=== PATIENT | female | born 1950 | race Caucasian/White ===

== ENCOUNTER 2021-02-16 13:10 | Outpatient (REF) | payer MEDICARE, MEDICAID, OTHER, SELFPAY ==
--- NOTE | ~2021-02-16 | XR_ITS ---
EXAMINATION: BILATERAL KNEE X-RAY CLINICAL INFORMATION: Pain COMPARISON: Previous left knee x-ray August 2015 and right knee x-ray June 2012 TECHNIQUE: 4 views of each knee FINDINGS: Right: Bone alignment is normal. No fracture or dislocation is seen. There is a degenerative meniscal calcification. There is mild arthritis at the medial femoral tibial and patellofemoral joints with small osteophytes. There is no joint effusion. Left: Bone alignment is normal. No fracture or dislocation is seen. There is degenerative meniscal calcification. There is arthritis at the femoral tibial and patellofemoral joints with joint space narrowing and osteophyte formation. There is a small joint effusion. XR/XR knee RT 4V IMPRESSION: Bilateral arthritis, left greater than right.
--- NOTE | ~2021-02-16 | XR_ITS ---
EXAMINATION: BILATERAL KNEE X-RAY CLINICAL INFORMATION: Pain COMPARISON: Previous left knee x-ray August 2015 and right knee x-ray June 2012 TECHNIQUE: 4 views of each knee FINDINGS: Right: Bone alignment is normal. No fracture or dislocation is seen. There is a degenerative meniscal calcification. There is mild arthritis at the medial femoral tibial and patellofemoral joints with small osteophytes. There is no joint effusion. Left: Bone alignment is normal. No fracture or dislocation is seen. There is degenerative meniscal calcification. There is arthritis at the femoral tibial and patellofemoral joints with joint space narrowing and osteophyte formation. There is a small joint effusion. XR/XR knee LT 4V IMPRESSION: Bilateral arthritis, left greater than right.
== END 2021-02-16 13:11 | disposition home or self-care (01) ==
LOC: HO.XRAY 13:10
PROVIDERS: PCP Internal Medicine; Visit Provider Family Medicine
DX: M25.561 Pain in right knee (principal); M25.562 Pain in left knee
CPT/HCPCS: 73564

== ENCOUNTER 2021-02-27 08:00 | Outpatient (REF) | payer MEDICARE, MEDICAID, OTHER, SELFPAY ==
--- NOTE | ~2021-02-27 | XR_ITS ---
EXAMINATION: BILATERAL KNEE X-RAY CLINICAL INFORMATION: Pain COMPARISON: Previous exam 02/16/2021 TECHNIQUE: Standing AP, lateral and sunrise of the bilateral knees FINDINGS: Right: Bone alignment is normal. No fracture or dislocation is seen there is degenerative meniscal calcification. There is joint space narrowing medial femoral tibial joint. There are small osteophytes Image at the medial femoral tibial and patellofemoral joints. There is no joint effusion. Left: Bone alignment is normal. No fracture or dislocation is seen. There is degenerative meniscal calcification. There are degenerative changes at the medial and lateral femoral tibial and patellofemoral joints with joint space narrowing and osteophyte formation. There is a small joint effusion. XR/XR knee standing BI IMPRESSION: Bilateral arthritis, left greater than right.
--- NOTE | ~2021-02-27 | XR_ITS ---
EXAMINATION: BILATERAL KNEE X-RAY CLINICAL INFORMATION: Pain COMPARISON: Previous exam 02/16/2021 TECHNIQUE: Standing AP, lateral and sunrise of the bilateral knees FINDINGS: Right: Bone alignment is normal. No fracture or dislocation is seen there is degenerative meniscal calcification. There is joint space narrowing medial femoral tibial joint. There are small osteophytes Image at the medial femoral tibial and patellofemoral joints. There is no joint effusion. Left: Bone alignment is normal. No fracture or dislocation is seen. There is degenerative meniscal calcification. There are degenerative changes at the medial and lateral femoral tibial and patellofemoral joints with joint space narrowing and osteophyte formation. There is a small joint effusion. XR/XR knee RT 2V IMPRESSION: Bilateral arthritis, left greater than right.
--- NOTE | ~2021-02-27 | XR_ITS ---
EXAMINATION: BILATERAL KNEE X-RAY CLINICAL INFORMATION: Pain COMPARISON: Previous exam 02/16/2021 TECHNIQUE: Standing AP, lateral and sunrise of the bilateral knees FINDINGS: Right: Bone alignment is normal. No fracture or dislocation is seen there is degenerative meniscal calcification. There is joint space narrowing medial femoral tibial joint. There are small osteophytes Image at the medial femoral tibial and patellofemoral joints. There is no joint effusion. Left: Bone alignment is normal. No fracture or dislocation is seen. There is degenerative meniscal calcification. There are degenerative changes at the medial and lateral femoral tibial and patellofemoral joints with joint space narrowing and osteophyte formation. There is a small joint effusion. XR/XR knee LT 2V IMPRESSION: Bilateral arthritis, left greater than right.
== END 2021-02-27 08:01 | disposition home or self-care (01) ==
LOC: HO.HOSX 08:00
PROVIDERS: Visit Provider Physician Assistant
DX: M17.0 Bilateral primary osteoarthritis of knee (principal)
CPT/HCPCS: 73560; 73565; 99202

== ENCOUNTER 2021-05-06 13:23 | Outpatient (REF) | payer MEDICARE, OTHER, SELFPAY ==
--- NOTE | ~2021-05-06 | MM_ITS ---
EXAMINATION: MM SCREENING DIGITAL BREAST TOMOSYNTHESIS, BILATERAL CLINICAL INFORMATION: Screening. Asymptomatic. The lifetime risk of breast cancer based on the Tyrer-Cuzick Model is 7%. COMPARISON: Mammography: 04/28/2020, 05/02/2019, 04/25/2019, 01/06/2018 TECHNIQUE: Digital breast tomosynthesis is performed in both the craniocaudal and mediolateral oblique views along with computer-aided detection (CAD). Synthesized 2D images are generated from the tomosynthesis. FINDINGS: There are scattered areas of fibroglandular density (ACR BI-RADS breast composition Category b). There are no significant masses, abnormal calcifications, or other abnormalities. Parenchymal pattern is similar to prior exams. No developing density. There are scattered bilateral round and ductal secretory calcifications. The axilla are unremarkable. Skin contours are smooth. MM/MM tomosynthesis screening BI IMPRESSION: No mammographic evidence of malignancy. ASSESSMENT: BI-RADS 2: Benign RECOMMENDATION: Routine annual mammography screening. This patient's information was entered into a reminder system with a target due date for their next mammogram.
== END 2021-05-06 13:24 | disposition home or self-care (01) ==
LOC: HO.MAMMO 13:23
PROVIDERS: Visit Provider Internal Medicine
DX: Z12.31 Encounter for screening mammogram for malignant neoplasm of breast (principal)
CPT/HCPCS: 77063; 77067

== ENCOUNTER 2022-05-06 13:34 | Outpatient (REF) | payer MEDICARE, OTHER, SELFPAY ==
--- NOTE | ~2022-05-06 | XR_ITS ---
EXAMINATION: XR HUMERUS, LEFT XR SHOULDER, LEFT CLINICAL INFORMATION: Left arm pain. COMPARISON: None TECHNIQUE: 4 views of left shoulder. 2 views of left humerus. FINDINGS: The acromioclavicular and glenohumeral joint alignments are maintained. Arthritic changes are noted at the acromioclavicular joint with narrowing of the joint space, subarticular sclerosis and marginal osteophytic changes. No significant arthritic changes are noted at the glenohumeral joint. The humerus is grossly unremarkable. Elbow joint is maintained. No suspicious lytic or blastic osseous lesion is noted. Visualized left hemithorax is unremarkable. No dystrophic soft tissue calcifications. XR/XR shoulder LT min 2V IMPRESSION: [id number] left AC joint arthropathy. Unremarkable left humerus. No acute osseous abnormality in the left shoulder and left humerus.
--- NOTE | ~2022-05-06 | XR_ITS ---
EXAMINATION: XR HUMERUS, LEFT XR SHOULDER, LEFT CLINICAL INFORMATION: Left arm pain. COMPARISON: None TECHNIQUE: 4 views of left shoulder. 2 views of left humerus. FINDINGS: The acromioclavicular and glenohumeral joint alignments are maintained. Arthritic changes are noted at the acromioclavicular joint with narrowing of the joint space, subarticular sclerosis and marginal osteophytic changes. No significant arthritic changes are noted at the glenohumeral joint. The humerus is grossly unremarkable. Elbow joint is maintained. No suspicious lytic or blastic osseous lesion is noted. Visualized left hemithorax is unremarkable. No dystrophic soft tissue calcifications. XR/XR humerus LT IMPRESSION: [id number] left AC joint arthropathy. Unremarkable left humerus. No acute osseous abnormality in the left shoulder and left humerus.
== END 2022-05-06 13:35 | disposition home or self-care (01) ==
LOC: HO.XRAY 13:34
PROVIDERS: PCP Internal Medicine; Visit Provider Nurse Practitioner
DX: M79.602 Pain in left arm (principal)
CPT/HCPCS: 73030; 73060

== ENCOUNTER 2022-05-10 13:34 | Outpatient (REF) | payer MEDICARE, OTHER, SELFPAY ==
--- NOTE | ~2022-05-10 | MM_ITS ---
EXAMINATION: MM SCREENING DIGITAL BREAST TOMOSYNTHESIS, BILATERAL CLINICAL INFORMATION: Screening. Asymptomatic. The lifetime risk of breast cancer based on the Tyrer-Cuzick Model is 3%. COMPARISON: Mammography: 05/06/2021, 04/28/2020, 05/02/2019 TECHNIQUE: Digital breast tomosynthesis is performed in both the craniocaudal and mediolateral oblique views along with computer-aided detection (CAD). Synthesized 2D images are generated from the tomosynthesis. FINDINGS: There are scattered areas of fibroglandular density (ACR BI-RADS breast composition Category b). Parenchymal pattern is similar to prior studies. There is no developing density or interval mass or architectural abnormality. Scattered coarse and ductal secretory calcifications are again seen. Some fine calcification versus tattoo pigment in bilateral axillary nodes are previously noted to be a chronic finding and stable. The skin contours are smooth. MM/MM tomosynthesis screening BI IMPRESSION: No mammographic evidence of malignancy. ASSESSMENT: BI-RADS 2: Benign RECOMMENDATION: Routine annual mammography screening. This patient's information was entered into a reminder system with a target due date for their next mammogram.
== END 2022-05-10 13:35 | disposition home or self-care (01) ==
LOC: HO.MAMMO 13:34
PROVIDERS: PCP Internal Medicine; Visit Provider Internal Medicine
DX: Z12.31 Encounter for screening mammogram for malignant neoplasm of breast (principal)
CPT/HCPCS: 77063; 77067

== ENCOUNTER 2022-05-19 13:17 | Outpatient (REF) | payer MEDICARE, OTHER, SELFPAY ==
--- NOTE | ~2022-05-19 | US_ITS ---
EXAMINATION: ULTRASOUND EXTREMITY NONVASCULAR. CLINICAL INFORMATION: Pain and swelling or the deltoid muscle, left arm. COMPARISON: None TECHNIQUE: Limited ultrasound imaging to the left lateral upper arm was performed. FINDINGS: Imaging through the left upper arm reveals no focal mass, fluid collection or any heterogeneity. The left cephalic vein is compressible and patent. US/US extremity nonvascular IMPRESSION: Unremarkable limited ultrasound imaging though the left upper extremity
== END 2022-05-19 13:18 | disposition home or self-care (01) ==
LOC: HO.US 13:17
PROVIDERS: PCP Internal Medicine; Visit Provider Nurse Practitioner
DX: M79.602 Pain in left arm (principal)
CPT/HCPCS: 76882

== ENCOUNTER → 2022-07-14 13:24 | Outpatient (BNVA) | payer MEDICARE, OTHER, SELFPAY | PROVIDERS: PCP Internal Medicine; Visit Provider Physician Assistant | DX: M75.82 Other shoulder lesions, left shoulder (principal) | CPT/HCPCS: 99202 ==

== ENCOUNTER 2022-08-02 14:22 | Outpatient (REF) | payer MEDICARE, MEDICAID, SELFPAY ==
--- NOTE | ~2022-08-02 | MR_ITS ---
EXAMINATION: MRI SHOULDER WITHOUT CONTRAST, LEFT CLINICAL INFORMATION: Left shoulder pain with movement. COMPARISON: None. TECHNIQUE: MR images of the shoulder were obtained on a 1.5 Dede high-field strength scanner without intravenous contrast material. FINDINGS: ROTATOR CUFF: Focal tendinosis and undersurface fraying is evident at the anterior fibers of the supraspinatus tendon approximately 1 cm from the insertion. A small 3 x 3 mm focus of interstitial delamination is suspected at the more posterior fibers of the supraspinatus tendon at the insertion. Moderate teres minor muscle atrophy and fatty replacement. Rotator cuff musculature is otherwise normal. No appreciable abnormalities in the quadrilateral space. BICEPS: Normal. CORACOACROMIAL ARCH: The undersurface of the acromion is curved with no subacromial spur. Ksbilphk-xp-[id number] acromioclavicular osteoarthritis. A small volume of fluid is evident in the subacromial-subdeltoid bursa anteriorly. LABRUM/CAPSULE: The glenoid labrum is diminutive posterosuperiorly, likely degenerated. No discrete tears. A sublabral foramen is evident anterosuperiorly. No discrete tears. Minimal capsular thickening and edema in the axillary pouch. GLENOHUMERAL JOINT/MARROW: Small glenoid osteophytes. There is mild chondral thinning at the glenoid rim posterosuperiorly and at the humeral head anterosuperiorly. There are discrete chondral defects. No fracture or malalignment. MR/MR shoulder LT wo con IMPRESSION: 1. No significant rotator cuff tears. Mild tendinosis and undersurface fraying of the supraspinatus tendon with a small 3 mm focus of concealed interstitial delamination. 2. Hwhxtswq-ml-kjwynn acromioclavicular osteoarthritis with minimal underlying subacromial-subdeltoid bursitis. 3. Mild glenohumeral osteoarthritis with degeneration of the posterosuperior glenoid labrum. 4. Moderate teres minor muscle atrophy and fatty replacement. No appreciable abnormalities in the quadrilateral space. 5. Minimal capsular thickening and edema at the axillary pouch. This is not specific but can be seen with adhesive capsulitis provided the appropriate clinical symptoms.
== END 2022-08-02 14:23 | disposition home or self-care (01) ==
LOC: HO.MRI 14:22
PROVIDERS: Visit Provider Physician Assistant
DX: S46.002A Unspecified injury of muscle(s) and tendon(s) of the rotator cuff of left shoulder, initial encounter (principal); X58.XXXA Exposure to other specified factors, initial encounter; Y93.9 Activity, unspecified; Y92.9 Unspecified place or not applicable; Y99.9 Unspecified external cause status
CPT/HCPCS: 73221

== ENCOUNTER → 2022-09-15 12:42 | Outpatient (BNVA) | payer MEDICARE, MEDICAID, SELFPAY | PROVIDERS: PCP Internal Medicine; Visit Provider Physician Assistant | DX: M75.82 Other shoulder lesions, left shoulder (principal) | CPT/HCPCS: 99212 ==

== ENCOUNTER 2022-11-24 13:53 | Outpatient (REF) | payer MEDICARE, MEDICAID, SELFPAY ==
--- NOTE | ~2022-11-24 | US_ITS ---
EXAMINATION: US RETROPERITONEAL LIMITED (RENAL ONLY) CLINICAL INFORMATION: Chronic kidney disease. COMPARISON: None TECHNIQUE: Real-time imaging of the kidneys. FINDINGS: RIGHT KIDNEY: 10.1 x 4.5 x 4.8 cm (SAG x AP x TRV). The kidney is normal in size, contour, and echogenicity. Renal cortical thickness is normal. No calculi or focal parenchymal lesions. No hydronephrosis. LEFT KIDNEY: 10.6 x 5.6 x 5.3 cm (SAG x AP x TRV). The kidney is normal in size, contour, and echogenicity. Renal cortical thickness is normal. No renal calculi or hydronephrosis. There is a midpole benign 4.6 cm Bosniak class I simple renal cyst which needs no additional imaging or follow-up. No solid renal masses. US/US renal BI IMPRESSION: Normal-appearing kidneys.
== END 2022-11-24 13:54 | disposition home or self-care (01) ==
LOC: HO.US 13:53
PROVIDERS: PCP Internal Medicine; Visit Provider Internal Medicine Hypertension Specialist
DX: N18.31 Chronic kidney disease, stage 3a (principal)
CPT/HCPCS: 76775

== ENCOUNTER 2023-01-26 15:21 | Outpatient (REF) | payer MEDICARE, MEDICAID, SELFPAY ==
--- NOTE | ~2023-01-26 | MR_ITS ---
EXAMINATION: MR KNEE WITHOUT CONTRAST, LEFT CLINICAL INFORMATION: Increasing left knee pain. COMPARISON: Multiple priors, most recent left knee radiographs dated 02/27/2021. TECHNIQUE: MRI of the knee without contrast was performed using routine sequences on a high-field scanner. FINDINGS: MENISCI: Medial Meniscus: Complete radial tear of the posterior horn/root measuring up to 1.8 cm in ML dimension with medial extrusion of the meniscal body which is significantly attenuated and irregular, consistent with complex tearing. Complex tearing extends into the anterior horn. Lateral Meniscus: Irregular inner margin tearing of the meniscal body and posterior horn. LIGAMENTS: Cruciate: Diffuse thickening and increased T2 signal throughout the anterior cruciate ligament with degenerative cystic change in the tibial spine, consistent with mucoid degeneration. More mild mucoid degeneration of the posterior cruciate ligament. Collateral: Intact. EXTENSOR MECHANISM: Intact quadriceps and patellar tendons. Normal patellofemoral alignment. ARTICULAR CARTILAGE/BONE: Patellofemoral Compartment: Full-thickness patellar median ridge and medial patellar facet articular cartilage loss with mild bony remodeling. Full-thickness loss at the medial trochlea with mild bony remodeling. Prominent marginal osteophytes. Medial Compartment: Diffuse articular cartilage thinning with areas of full-thickness loss at the weight-bearing medial femoral condyle and medial tibial plateau where there is mild bony remodeling and subchondral cystic change. Articular cartilage signal heterogeneity and partial-thickness loss extends to the posterior nonweight-bearing medial femoral condyle. Prominent marginal osteophytes. Lateral Compartment: Diffuse articular cartilage signal heterogeneity and surface irregularity with marginal osteophytes. JOINT FLUID AND BURSAE: Small joint effusion with mild synovitis. Posterior loose body measuring up to 0.9 cm. MR/MR knee LT wo con IMPRESSION: 1. Severe medial compartment osteoarthritis. Complete radial tear of the medial meniscus posterior horn/root measuring 1.8 cm in ML dimension with medial extrusion of the meniscal body which is significantly attenuated and irregular. Complex tearing extends into the anterior horn. 2. Mild lateral compartment osteoarthritis. Irregular inner margin tearing of the lateral meniscal body and posterior horn. 3. Prominent mucoid degeneration of the anterior cruciate ligament with more mild mucoid degeneration of the posterior cruciate ligament. 4. Severe patellofemoral compartment osteoarthritis. Small joint effusion with mild synovitis. Posterior loose body measuring up to 0.9 cm.
== END 2023-01-26 15:22 | disposition home or self-care (01) ==
LOC: HO.MRI 15:21
PROVIDERS: PCP Internal Medicine; Visit Provider Registered Nurse
DX: M25.562 Pain in left knee (principal)
CPT/HCPCS: 73721

== ENCOUNTER → 2023-02-21 13:36 | Outpatient (BNVA) | payer MEDICARE, MEDICAID, SELFPAY | PROVIDERS: PCP Internal Medicine; Visit Provider Orthopaedic Surgery | DX: M17.12 Unilateral primary osteoarthritis, left knee (principal) | CPT/HCPCS: 99212 ==

== ENCOUNTER 2023-05-04 12:20 | Outpatient (REF) | payer MEDICARE, MEDICAID, SELFPAY ==
[2023-05-05 02:27] LABS: Anion Gap 11 (12-20); Blood Urea Nitrogen 14 mg/dL (9-16); Calcium 9.2 mg/dL (8.4-10.2); Carbon Dioxide 28 mmol/L (22-29); Chloride 107 mmol/L (96-108); Estimated Glomerular Filt Rate 59; Glucose Random 72 mg/dL (60-115); Potassium 3.6 mmol/L (3.3-5.1); Sodium 142 mmol/L (135-145)
== END 2023-05-04 12:21 | disposition home or self-care (01) ==
LOC: HO.10HDL 12:20
PROVIDERS: Visit Provider Internal Medicine Hypertension Specialist
DX: N18.31 Chronic kidney disease, stage 3a (principal)
CPT/HCPCS: 36415; 80048

== ENCOUNTER 2023-05-16 13:34 | Outpatient (REF) | payer MEDICARE, MEDICAID, SELFPAY ==
--- NOTE | ~2023-05-16 | MM_ITS ---
EXAMINATION: MM SCREENING DIGITAL BREAST TOMOSYNTHESIS, BILATERAL CLINICAL INFORMATION: Screening. Asymptomatic. The lifetime risk of breast cancer based on the Tyrer-Cuzick Model is 5.3%. COMPARISON: Mammography: This study is compared with prior exams dating back to 2019. TECHNIQUE: Digital breast tomosynthesis is performed in both the craniocaudal and mediolateral oblique views along with computer-aided detection (CAD). Synthesized 2D images are generated from the tomosynthesis. FINDINGS: There are scattered areas of fibroglandular density (ACR BI-RADS breast composition Category b). There are no significant masses, abnormal calcifications, or other abnormalities. Few, bilateral, benign calcifications are present. MM/MM tomosynthesis screening BI IMPRESSION: No mammographic evidence of malignancy. ASSESSMENT: BI-RADS BI-RADS 2 - Benign Findings RECOMMENDATION: Routine annual mammography screening. 1 year F/U This examination should not preclude the clinical evaluation of a suspicious palpable abnormality. This patient's information was entered into a reminder system with a target due date for their next mammogram.
== END 2023-05-16 13:35 | disposition home or self-care (01) ==
LOC: HO.MAMMO 13:34
PROVIDERS: PCP Internal Medicine; Visit Provider Internal Medicine
DX: Z12.31 Encounter for screening mammogram for malignant neoplasm of breast (principal)
CPT/HCPCS: 77063; 77067

== ENCOUNTER → 2023-05-16 14:00 | Outpatient (BNV) | payer MEDICARE, MEDICAID, SELFPAY | PROVIDERS: PCP Internal Medicine; Visit Provider Radiology Diagnostic Radiology | DX: Z12.31 Encounter for screening mammogram for malignant neoplasm of breast (principal) | CPT/HCPCS: 77063; 77067 ==

== ENCOUNTER 2023-06-27 14:27 | Outpatient (REF) | payer MEDICARE, MEDICAID, SELFPAY ==
[2023-06-27 15:55] LABS: MANUAL DIFF FLAG NO
[2023-06-27 16:01] LABS: Basophils Absolute Auto 0.1 X10*3/uL (0.0-0.2); Basophils Percent Auto 0.6 % (0-2); Eosinophils Absolute Auto 0.1 X10*3/uL (0.0-0.4); Eosinophils Percent Auto 0.7 % (0-4); Hematocrit 39.3 % (37.0-47.0); Hemoglobin 11.9 g/dl (12.0-16.0); Imm Gran Abs Auto 0.04 X10*3/uL (0.00-0.03); Imm Gran Pct Auto 0.4 % (0.0-0.4); Lymphocytes Absolute Auto 1.9 X10*3/uL (1.2-4.9); Lymphocytes Percent Auto 17.9 % (20-40); Mean Corpuscular HGB Conc 30.3 g/dl (31.0-35.0); Mean Corpuscular Hemoglobin 24.4 pg (27.0-33.0); Mean Corpuscular Volume 80.7 fL (80.0-98.0); Mean Platelet Volume 11.6 fL (9.4-12.3); Monocytes Absolute Auto 0.4 X10*3/uL (0.1-1.2); Monocytes Percent Auto 3.4 % (2-11); Neutrophils Absolute Auto 8.1 x10*3/uL (2.0-8.3); Platelet Count 390 X10*3/uL (160-400); Red Blood Count 4.87 X10*6/uL (4.20-5.50); Red Cell Distribution Width 15.5 % (11.0-16.0); White Blood Count 10.5 X10*3/uL (4.8-10.8)
[2023-06-27 16:30] LABS: Alanine Aminotransferase 9 U/L (0-31); Alkaline Phosphatase 102 U/L (39-117); Anion Gap 11 (12-20); Aspartate Amino Transferase 15 U/L (5-31); Bilirubin Direct 0.2 mg/dL (0.0-0.5); Bilirubin Total 0.6 mg/dL (0.0-1.0); Blood Urea Nitrogen 17 mg/dL (9-16); Calcium 9.8 mg/dL (8.4-10.2); Carbon Dioxide 28 mmol/L (22-29); Chloride 108 mmol/L (96-108); Cholesterol 227 mg/dL (<200); Estimated Glomerular Filt Rate 58; Glucose Random 123 mg/dL (60-115); HDL Cholesterol 67 mg/dL (>40); LDL Cholesterol Calculated 135 mg/dL (<100); Potassium 3.8 mmol/L (3.3-5.1); Sodium 143 mmol/L (135-145); Total Protein 7.1 g/dL (6.5-8.0); Triglycerides 125 mg/dL (<150)
[2023-06-27 16:34] LABS: TSH reflex Free T4 0.18 uIU/mL (0.32-4.0)
[2023-06-27 17:24] LABS: Free T4 (Free Thyroxine) 1.34 ng/dL (0.71-1.85)
== END 2023-06-27 14:28 | disposition home or self-care (01) ==
LOC: HO.HHCL 14:27
PROVIDERS: Visit Provider Internal Medicine
DX: Z00.00 Encounter for general adult medical examination without abnormal findings (principal); I12.9 Hypertensive chronic kidney disease with stage 1 through stage 4 chronic kidney disease, or unspecified chronic kidney disease; N18.30 Chronic kidney disease, stage 3 unspecified; E03.9 Hypothyroidism, unspecified; N95.1 Menopausal and female climacteric states
CPT/HCPCS: 36415; 80048; 80061; 80076; 84439; 84443; 85025

== ENCOUNTER 2023-07-22 14:38 | Outpatient (REF) | payer MEDICARE, MEDICAID, SELFPAY | END 2023-07-22 14:39 | disposition home or self-care (01) | LOC: HO.MAMMO 14:38 | PROVIDERS: PCP Internal Medicine; Visit Provider Internal Medicine | DX: Z13.820 Encounter for screening for osteoporosis (principal); Z78.0 Asymptomatic menopausal state | CPT/HCPCS: 77080 ==

== ENCOUNTER 2023-12-26 15:55 | Outpatient (REF) | payer MEDICARE, MEDICAID, SELFPAY ==
[2023-12-26 18:23] LABS: TSH reflex Free T4 6.23 uIU/mL (0.32-4.0)
[2023-12-26 19:00] LABS: Free T4 (Free Thyroxine) 0.98 ng/dL (0.71-1.85)
== END 2023-12-26 15:56 | disposition home or self-care (01) ==
LOC: HO.HHCL 15:55
PROVIDERS: Visit Provider Internal Medicine
DX: E03.9 Hypothyroidism, unspecified (principal)
CPT/HCPCS: 36415; 84439; 84443

== ENCOUNTER 2024-04-23 15:46 | Outpatient (REF) | payer MEDICARE, MEDICAID, SELFPAY ==
[2024-04-23 17:42] LABS: MANUAL DIFF FLAG NO
[2024-04-23 17:53] LABS: Basophils Absolute Auto 0.1 X10*3/uL (0.0-0.2); Basophils Percent Auto 0.6 % (0-2); Eosinophils Absolute Auto 0.1 X10*3/uL (0.0-0.4); Hematocrit 39.6 % (37.0-47.0); Hemoglobin 12.3 g/dl (12.0-16.0); Imm Gran Abs Auto 0.07 X10*3/uL (0.00-0.03); Imm Gran Pct Auto 0.6 % (0.0-0.4); Lymphocytes Absolute Auto 2.9 X10*3/uL (1.2-4.9); Lymphocytes Percent Auto 23.2 % (20-40); Mean Corpuscular HGB Conc 31.1 g/dl (31.0-35.0); Mean Corpuscular Hemoglobin 26.3 pg (27.0-33.0); Mean Corpuscular Volume 84.8 fL (80.0-98.0); Monocytes Absolute Auto 0.6 X10*3/uL (0.1-1.2); Monocytes Percent Auto 4.8 % (2-11); Neutrophils Absolute Auto 8.7 x10*3/uL (2.0-8.3); Neutrophils Percent Auto 69.8 % (45-73); Platelet Count 371 X10*3/uL (160-400); Red Blood Count 4.67 X10*6/uL (4.20-5.50); Red Cell Distribution Width 14.4 % (11.0-16.0); White Blood Count 12.4 X10*3/uL (4.8-10.8)
[2024-04-23 18:42] LABS: Alanine Aminotransferase 8 U/L (0-31); Albumin Level 4.2 g/dL (3.5-5.0); Alkaline Phosphatase 102 U/L (39-117); Anion Gap 14 (12-20); Aspartate Amino Transferase 15 U/L (5-31); Bilirubin Total 0.4 mg/dL (0.0-1.0); Blood Urea Nitrogen 19 mg/dL (9-16); Calcium 9.8 mg/dL (8.4-10.2); Carbon Dioxide 29 mmol/L (22-29); Chloride 104 mmol/L (96-108); Cholesterol 179 mg/dL (<200); Estimated Glomerular Filt Rate 43; Glucose Random 91 mg/dL (60-115); HDL Cholesterol 74 mg/dL (>40); LDL Cholesterol Calculated 87 mg/dL (<100); Potassium 4.1 mmol/L (3.3-5.1); Sodium 143 mmol/L (135-145); Total Protein 7.5 g/dL (6.5-8.0); Triglycerides 94 mg/dL (<150)
[2024-04-23 20:18] LABS: Reflex LDLD? No
== END 2024-04-23 15:47 | disposition home or self-care (01) ==
LOC: HO.HHCL 15:46
PROVIDERS: Visit Provider Internal Medicine
DX: E03.9 Hypothyroidism, unspecified (principal)
CPT/HCPCS: 36415; 80053; 80061; 84443; 85025

== ENCOUNTER 2024-05-21 13:29 | Outpatient (REF) | payer MEDICARE, MEDICAID, SELFPAY ==
--- NOTE | ~2024-05-21 | MM_ITS ---
EXAMINATION: MM SCREENING DIGITAL BREAST TOMOSYNTHESIS, BILATERAL CLINICAL INFORMATION: Screening. Asymptomatic. COMPARISON: Mammography: This study is compared with prior exams dating back to 2019. TECHNIQUE: Digital breast tomosynthesis is performed in both the craniocaudal and mediolateral oblique views along with computer-aided detection (CAD). Synthesized 2D images are generated from the tomosynthesis. FINDINGS: There are scattered areas of fibroglandular density (ACR BI-RADS breast composition Category b). There are no significant masses, abnormal calcifications, or other abnormalities. Benign calcifications are present in each breast. MM/MM tomosynthesis screening BI IMPRESSION: No mammographic evidence of malignancy. ASSESSMENT: BI-RADS BI-RADS 2 - Benign Findings RECOMMENDATION: Routine annual mammography screening. 1 year F/U This examination should not preclude the clinical evaluation of a suspicious palpable abnormality. This patient's information was entered into a reminder system with a target due date for their next mammogram. Electronically signed by: Asia Senior MD 06/19/2024 06:06 AM EDT
== END 2024-05-21 13:30 | disposition home or self-care (01) ==
LOC: HO.MAMMO 13:29
PROVIDERS: Visit Provider Internal Medicine
DX: Z12.31 Encounter for screening mammogram for malignant neoplasm of breast (principal)
CPT/HCPCS: 77063; 77067

== ENCOUNTER → 2024-05-21 13:45 | Outpatient (BNV) | payer MEDICARE, MEDICAID, SELFPAY | PROVIDERS: Visit Provider Radiology Diagnostic Radiology | DX: Z12.31 Encounter for screening mammogram for malignant neoplasm of breast (principal) | CPT/HCPCS: 77063; 77067 ==

== ENCOUNTER 2024-07-30 10:19 | Outpatient (REF) | payer MEDICARE, MEDICAID, SELFPAY ==
[2024-07-30 11:27] LABS: Anion Gap 11 (12-20); Blood Urea Nitrogen 15 mg/dL (9-16); Calcium 9.8 mg/dL (8.4-10.2); Carbon Dioxide 29 mmol/L (22-29); Chloride 104 mmol/L (96-108); Estimated Glomerular Filt Rate > 60; Potassium 4.1 mmol/L (3.3-5.1); Sodium 140 mmol/L (135-145)
[2024-07-30 12:18] LABS: Appearance Urine Cloudy; Color Urine Yellow; Glucose Urine UA Negative (Negative); Leukocyte Esterase Urine Small (1+) (Negative); Nitrite Urine Negative (Negative); PH 5.5 (5.0-9.0); Specific Gravity - Urine 1.015 (1.005-1.025); UMIC TRIGGER UA YES; Urine Blood Negative (Negative); Urine Ketones Negative (Negative); Urine Protein Negative (Neg-Trace)
[2024-07-30 12:24] LABS: Bacteria Urine 1+ (None Seen); Hyaline Casts Urine 0-2 /LPF (0-2); RBC Urine 0-2 /HPF (0-2); Squamous Epithelial Cell Urine >20 /HPF (0-2)
[2024-07-30 12:36] LABS: Creatinine Urine 138.47 mg/dL; Microalbum/Creatinine Ratio Ur 12.9 ug/mg cr (<30); Protein/Creatinine Ratio, Ur 0.08 (<0.2); Total Protein Urine Random 11 mg/dL (<12)
== END 2024-07-30 10:20 | disposition home or self-care (01) ==
LOC: HO.LAB 10:19
PROVIDERS: PCP Internal Medicine; Visit Provider Internal Medicine Nephrology
DX: I12.9 Hypertensive chronic kidney disease with stage 1 through stage 4 chronic kidney disease, or unspecified chronic kidney disease (principal)
CPT/HCPCS: 36415; 80051; 81001; 82043; 82310; 82565; 82570; 84156; 84520

== ENCOUNTER 2025-04-29 14:20 | Outpatient (REF) | payer MEDICARE, MEDICAID, SELFPAY ==
--- OUTSIDE RECORDS SUMMARY | 2025-04-29 15:44 | XMS_ITS | Clinical Summary ---
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 Active pentazocine-nal oxone (TALWIN NX) 50-0.5 MG per tablet TAKE ONE TABLET BY MOUTH EVERY 3 TO 4 HOURS NEEDED 07/08/2021 Active pravastatin (PRAVACHOL) 40 MG tablet Take 40 mg by mouth every morning 07/09/2024 Active losartan (COZAAR) 25 MG tablet Take 1 tablet (25 mg total) by mouth in the morning. 30 tablet 11 08/06/2024 5 Active Active Problems Problem Noted Date Diagnosed Date Chronic kidney disease, stage 2 (mild) 4 Stage 3a chronic kidney disease 07/21/2023 Chronic kidney disease due to benign hypertensio n 07/21/2023 Patient encounter status 06/27/2023 023 Overview (07/21/2023): Last Assessment & Plan: See HPI Other specified menopausal and perimenopausal di sorders 06/27/2023 07/21/2023 Menopausal syndrome 06/27/2023 07/21/2023 Psoriasis 02/22/2023 05/06/2023 Primary hypertension 02/22/2023 05/06/2023 Overview (05/06/2023): Last Assessment & Plan: Blood presure now at goal she will continue on low Na diet and taking her hydrochlorothiazide 25mg daily + losartan 25mg daily RTC 3 months Urinary incontinence 02/15/2023 05/06/2023 Primary osteoarthritis of left shoulder 02/16/2005/06/2023 Overview (05/06/2023): Last Assessment & Plan: As above Lesion of skin of face 02/15/2023 Primary gonarthrosis, bilateral 01/06/2023 05/06/2023 Overview (05/06/2023): Last Assessment & Plan: Continue with pentazocine-naloxone 50-0.5mg daily Next refill will be for 28 days Patient will be under COT Chronic low back pain 01/05/2023 05/06/2023 Alopecia 01/05/2023 05/06/2023 Acquired hypothyroidism 01/05/2023 05/06/20 Stage 3 chronic kidney disease 04/30/2022 Pain in face 09/11/2018 05/06/2023 Family History Medical History Relation Comments Heart disease Mother Relation Status Comments Mother Social History Tobacco Use Types Packs/Day Years Used Date Smoking Tobacco: Never Smokeless Tobacco: Never Alcohol Use Standard Drinks/Week Comments Not Currently 0 (1 standard drink = 0.6 oz pur e alcohol) Comments Unknown Sex and Gender Information Value Date Recorded Sex Assigned at Not on file Legal Sex Female 9:50 AM EDT Gender Identity Not on file Sexual Orientation Not on file Last Filed Vital Signs Vital Sign Reading Time Taken Comments Blood Pressure 148/82 08/06/2024 1:57 PM EDT Pulse 66 08/06/2024 1:57 PM EDT Temperature - - Respiratory Rate - - Oxygen Saturation 97% 08/06/2024 1:57 PM EDT Inhaled Oxygen Concentration - - Weight 88.7 kg (195 lb 9.6 oz) 08/06/2024 1:57 P M EDT Height 162.6 cm (5' 4 ) 08/06/2024 1:57 PM EDT Body Mass Index 33.57 08/06/2024 1:57 PM EDT Plan of Treatment Upcoming Encounters Date Type Department Care Team (Late st Contact Info) Description 08/12/2025 2:15 PM EDT Office Visit [facility] [address] [place] [phone] Jatin Rincon MD [address] [facility] [address] [place] [id number] Health Maintenance Due Date Last Done Comments Breast Cancer Screening 1950 Pneumococcal Vaccine: 50+ Ye ars (1 of 2 - PCV) 1969 Colorectal Cancer Screening: Annual FOBT 1999 Colorectal Cancer Screening: Colonoscopy 1999 Colorectal Cancer Screening: Sigmoidoscopy 1999 Influenza Vaccine (#1) 2025 Hepatitis B Vaccine Aged Out No longe r eligible based on patient's age to complete this topic Insurance Medicare Medicaid [place] Care Teams 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
--- OUTSIDE RECORDS SUMMARY | 2025-04-29 15:44 | XMS_ITS | Clinical Summary ---
Author Organization [employer] Address [address] [place] [address] [address] [place] [address] Care Team Providers Care Human Resources Generalist Name Role Phone Gale Calhoun MD Primary Care Provide r Allergies Active Allergy Reactions Criticality Noted Date Comments Ibuprofen 04/23/2024 Penicillins 08/10/2021 Yeast infection Medications cholecalciferol (Vitamin D-3) 50 MCG (1999 UT) capsule Take 1 capsule by mouth at bed time. 08/16/20 19 Active lidocaine (Lidoderm) 5 % patch APPLY 1 PATCH TOPICALLY TO SKIN DAILY, MAY WEAR UP TO 12 HOURS 05/06/20 Active Blood Pressure Monitoring (Omron 3 Series BP Monitor) device USE TO CHECK BLOOD PRESSURE DAILY DIRECTED 05/06/20 Active chlorhexidine (Peridex) 0.12 % solution Swish 15 mL morning and night for 1 minute. Spit, do not swallow. Do not eat or drink for 30 minutes following use. 473 mL 10/09/20 24 Active omeprazole (PriLOSEC) [address] capsuleIndication s:Chronic GERD TAKE 1 CAPSULE BY MOUTH BEFORE BREAKFAST 90 capsule 2 12/12/19 25 Active pravastatin (Pravachol) 40 MG tabletIndications :Primary hypertension TAKE ONE TABLET BY MOUTH EVERY MORNING. 90 tablet 1 01/03/20 25 Active levothyroxine (Synthroid, Levoxyl) 112 MCG tabletIndications :Acquired hypothyroidism TAKE ONE TABLET BY MOUTH EVERY DAY BEFORE BREAKFAST 90 tablet 02/15/20 25 Active losartan (Cozaar) 25 MG tabletIndications :Primary hypertension TAKE ONE TABLET BY MOUTH EVERY DAY IN THE MORNING 90 tablet 1 03/05/20 25 Active azithromycin (Zithromax) 250 MG tablet Take (2) tabs 1st day; take (1) tab next 4 days. 6 tablet 04/08/20 25 Active pentazocine-nalox one (Talwin NX) 50-0.5 MG tabletIndications :Primary osteoarthritis of both knees Take 1 tablet by mouth every 4 (four) hours if needed for mild pain for up to 28 days. 140 tablet 1 04/17/20 25 2024 Active pentazocine-nalox one (Talwin NX) 50-0.5 MG tabletIndications :Primary osteoarthritis of both knees TAKE ONE TABLET BY MOUTH EVERY 4 HOURS IF NEEDED FOR MILD OR MODERATE PAIN 140 tablet 1 02/02/20 25 2024 Discontinued(R eorder (will not trigger notification to Pharmacy)) Active Problems Problem Noted Date Diagnosed Date Depression with anxiety 04/29/2025 Long-term current use of opiate analgesic 2024 GERD (gastroesophageal reflux disease) Assessment & Plan (10/29/2024 2:56 PM EST): I advise patient to avoid NSAIDs, spicy and acid food, I advise to eat at the same time every day, I advise to elevate the head of the bed and take medications as prescribe Colon cancer screening declined 04/23/2024 Venous insufficiency 12/26/2023 Assessment & Plan (12/26/2023 3:41 PM EDT): Compression stockings will be prescribe today Upper back pain 12/26/2023 Bilateral leg pain 12/26/2023 Dental calculus 08/15/2023 Dental abscess 08/15/2023 Missing teeth, acquired 08/15/2023 Osteopenia 07/27/2023 Assessment & Plan (07/27/2023 4:21 PM EDT): continue vitamin D daily Encounter for preventative adult health care exa mination 06/27/2023 Assessment & Plan (06/27/2023 2:24 PM EDT): See HPI Colon cancer screening 06/27/2023 Menopause syndrome 06/27/2023 Other specified menopausal and perimenopausal di sorders 06/27/2023 Primary hypertension 02/22/2023 Assessment & Plan (10/29/2024 2:53 PM EST): I advised: - Aerobic exercise to reduce BP. Initial goal of 30 min walk 3-5x/week. Increase as tolerated. - low-sodium diet (goal: <2g/day) and heart healthy diet such as DASH to reduce BP and prevent ASCVD. - Home BP monitoring 1-2 x day with goal of <140/90. - Seek immediate medical attention for chest pain, palpitations, SOB, syncope, or sudden changes in mental status. - Do not change or discontinue current prescriptions without first consulting health care provider Assessment & Plan (04/24/2024 5:12 PM EDT): - Aerobic exercise to reduce BP. Initial goal of 30 min walk 3-5x/week. Increase as tolerated. - low-sodium diet (goal: <2g/day) and heart healthy diet such as DASH to reduce BP and prevent ASCVD. - Home BP monitoring 1-2 x day with goal of <140/90. - Seek immediate medical attention for chest pain, palpitations, SOB, syncope, or sudden changes in mental status. - Do not change or discontinue current prescriptions without first consulting health care provider Assessment & Plan (12/26/2023 3:40 PM EDT): I ask patient to log in her blood pressure and then come back in 2 weeks for check up if BP is not at goal I will add amlodipine 2.5mg daily I advise low Na diet Assessment & Plan (07/27/2023 4:20 PM EDT): Maintenance: BMP: up to date Lipid Panel: up to date ASCVD Risk: Calculated today, I will start pravastatin 40mg daily - Aerobic exercise to reduce BP. Initial goal of 30 min walk 3-5x/week. Increase as tolerated. - low-sodium diet (goal: <2g/day) and heart healthy diet such as DASH to reduce BP and prevent ASCVD. - Home BP monitoring 1-2 x day with goal of <140/90. - Seek immediate medical attention for chest pain, palpitations, SOB, syncope, or sudden changes in mental status. - Do not change or discontinue current prescriptions without first consulting health care provider Assessment & Plan (06/27/2023 2:25 PM EDT): - Aerobic exercise to reduce BP. Initial goal of 30 min walk 3-5x/week. Increase as tolerated. - low-sodium diet (goal: <2g/day) and heart healthy diet such as DASH to reduce BP and prevent ASCVD. - Home BP monitoring 1-2 x day with goal of <140/90. - Seek immediate medical attention for chest pain, palpitations, SOB, syncope, or sudden changes in mental status. -I added today amlodipine 5mg daily plan is if BP not at goal on nurse visit to go up to 10mg daily - Do not change or discontinue current prescriptions without first consulting health care provider Assessment & Plan (03/23/2023 2:14 PM EDT): Blood presure now at goal she will continue on low Na diet and taking her hydrochlorothiazide 25mg daily + losartan 25mg daily RTC 3 months Psoriasis 02/22/2023 Urinary incontinence 02/15/2023 Primary osteoarthritis of left shoulder 02/16/20 Assessment & Plan (02/23/2023 4:49 PM EDT): As above Lesion of skin of face 02/15/2023 Primary osteoarthritis of both knees 01/06/2023 Assessment & Plan (03/23/2023 2:15 PM EDT): Continue with pentazocine-naloxone 50-0.5mg daily Next refill will be for 28 days Patient will be under COT Assessment & Plan (02/23/2023 4:49 PM EDT): Patient failed oxycodone I will put her today on tramadol, I will call her in few weeks to see if it helped if not I will submit again PA for pentazocine Acquired hypothyroidism 01/05/2023 Assessment & Plan (10/29/2024 2:54 PM EST): TSH will be check today C/w same levothyroxine 112mcg daily Assessment & Plan (06/27/2023 2:24 PM EDT): TSH will be check with labs Alopecia 01/05/2023 Chronic low back pain 01/05/2023 Stage 3 chronic kidney disease 04/30/2022 Pain in face 09/11/2018 Encounters Date Type Department Care Team Description 04/29/2025 3:30 PM EDT Office Visit [facility] AD[facility] [address] [place] [address] Sunday Pimentel DDS Arrived 04/29/2025 1:45 PM EDT Office Visit [address] [address] Gale Calhoun MD Depression with anxiety 04/29/2025 Travel 04/26/[address] [address] Gale Calhoun MD Chart Prep 04/22/2025 Patient Outreach [address] [address] Gale Calhoun MD Pre-visit Planning (SDOH screening negative and Tobacco screening negative) 04/16/[address] [address] Gale Calhoun MD Primary osteoarthritis of both knees 04/08/2025 1:00 PM EDT Office Visit [facility] [address] [place] [address] Cassandra Colbert DDS 03/29/2025 11:30 AM EDT Telemedicine [address] [address] Danita Mercedes RN Long-term current use of opiate analgesic 03/29/2025 Travel 03/18/2025 1:30 PM EDT Office Visit [facility] ADULT DENTAL [address] [place] [address] Domingo Craig, DMD 03/11/2025 Travel 03/05/[address] [facility] MEDICINE [address] [place] [address] Gale Calhoun MD Primary hypertension 02/18/2025 1:15 PM EDT Office Visit [facility]ULT [facility]AL [address] [facility] [place] [address] Chyna Calloway, CELESTINA 02/14/[address] [facility] MED[facility] [address] [place] [address] Phylicia Meade MD Acquired hypothyroidism 01/31/[address] [facility] [address] [place], [place] [id number] Gale Calhoun MD Primary osteoarthritis of both knees from Last 3 Months Family History Medical History Relation Name Comments Colon cancer Father Cancer Sister Relation Name Status Comments Father Sister Social History Tobacco Use Types Packs/Day Years Used Date Smoking Tobacco: Never Passive Smoke Exposure: Never Smokeless Tobacco: Never Tobacco Cessation:Counseling Given: Not Answered Alcohol Use Standard Drinks/Week Comments Never 0 (1 standard drink = 0.6 oz pur e alcohol) Depression Answer Date Recorded Patient Health Questionnaire-9 Score 2 10/29/2024 Patient Health Questionnaire-9 Score 2 10/29/2024 Last PHQ-9: Questionnaire Data Not on file 0 10/29/2024 Housing Stability Answer Date Recorded What is your housing situation today? I have ezra kiser 04/22/[address] you li ve. Do you have problems with any of the following? None of the above 04/22/2025 Food Insecurity Answer Date Recorded Within the past 12 months, y ou worried that your food would run out before you got money to buy more: Never True 04/22/2025 Within the past 12 months,th e food you bought just didn't last and you didn't have enough money to get more: Never True 04/2025 Transportation Answer Date Recorded In the past 12 months, has l ack of transportation kept you from medical appts, meetings, work or from getting things needed for daily living? No 04/22/2025 Utilities Answer Date Recorded In the past 12 months, has t he electric, gas, oil or water company threatened to shut off services in your home? No 04/22/2025 Depression Answer Date Recorded Patient Health Questionnaire-2 Score 1 10/29/2024 Internet Access Answer Date Recorded Internet Access Q1 Yes 04/22/2025 Internet Access Q2 Not on file 04/22/2025 Comments Unknown Sex and Gender Information Value Date Recorded Sex Assigned at Female 08/16/2022 10:29 AM EDT Legal Sex Female 10:29 AM EDT Gender Identity Female 08/16/2022 10:29 AM EDT Sexual Orientation Straight 08/16/2022 10 :29 AM EDT Last Filed Vital Signs Vital Sign Reading Time Taken Comments Blood Pressure 138/78 04/29/2025 2:59 PM EDT Pulse 60 04/29/2025 2:00 PM EDT Temperature 36.7 C (98 F) 04/29/2025 2:00 PM EDT Respiratory Rate 18 04/29/2025 2:00 PM EDT Oxygen Saturation 95% 04/29/2025 2:00 PM EDT Inhaled Oxygen Concentration - - Weight 85.1 kg (187 lb 9.6 oz) 04/29/2025 2:00 P M EDT Height 160 cm (5' 3 ) 04/29/2025 2:00 PM EDT Body Mass Index 33.23 04/29/2025 2:00 PM EDT Plan of Treatment Upcoming Encounters Date Type Department Care Team (Late st Contact Info) Description 07/01/2025 3:30 PM EDT Telemedicine [address] [address] Gale Calhoun MD [address] [place] [phone] 07/19/2025 11:00 AM EDT Telemedicine [address] [address] Danita Mercedes, TORRES Health Maintenance Due Date Last Done Comments CT Colonography 1950 Colonoscopy 1950 Colorectal Cancer Screening 1950 FIT DNA/Cologuard 1950 FIT 1950 FOBT 1950 Sigmoidoscopy 1950 Hepatitis C Screening 1968 DTaP/Tdap/Td Vaccines (1 - Tdap) 1969 Pneumococcal Vaccine: 50+ Years (1 of 1 - PCV) 2000 Zoster Vaccines (1 of 2) 2000 COVID-19 Vaccine (2 - season) 2024 01/21/2021 Dental X-Ray: Full Mouth 08/18/2024 08/17/2021 Dental Oral Exam 04/26/2025 10/26/2024, , 08/26/2022 Dental Prophylaxis 04/26/2025 10/26/2024, 0 03/19/2024, 08/15/2023 RSV Patients and Patients Aged 60 years or older (1 - 1-dose 75+ series) 2025 Mammogram 05/21/2025 05/21/2024, 04/18, 05/10/2022, Additional history exists Influenza Vaccine (#1) 2025 Dental X-Ray: Bitewings 10/27/2025 10/26/2024, 08/15 Depression Screening 10/29/2025 10/29/2024, 10/29/19 SDOH Screening 04/22/2026 04/22/2025 Alcohol/Substance Use Screening 04/29/2026 04/29/2025 Tobacco Screening 04/29/2026 04/29/2025 Lipid Panel 04/23/2029 04/23/2024, 06/17, 06/10/2022, Additional history exists HIB Vaccines Aged Out No longer eligi ble based on patient's age to complete this topic HPV Vaccines Aged Out No longer eligi ble based on patient's age to complete this topic Hepatitis A Vaccines Aged Out No long er eligible based on patient's age to complete this topic Hepatitis B Vaccines Aged Out No long er eligible based on patient's age to complete this topic IPV Vaccines Aged Out No longer eligi ble based on patient's age to complete this topic Meningococcal B Vaccine Aged Out No l onger eligible based on patient's age to complete this topic Meningococcal Vaccine Aged Out No nils nellie eligible based on patient's age to complete this topic RSV under 20 months Aged Out No longe r eligible based on patient's age to complete this topic Rotavirus Vaccines Aged Out No longer eligible based on patient's age to complete this topic Procedures Procedure Name Priority Date/Time Associated Diagnosis Comments RE-EVAL - LIMITED, PROBLEM FOCUSED (EST PATIENT; NOT POST-OP VISIT) Routine 04/08/2025 1:00 PM EDT CASE PRESENTATION, DETAILED AND EXTENSIVE TREATMENT PLANNING Routine 03/18/2025 1:30 PM EDT 11 ML RESIN-BASED COMPOSITE - 2 SURF, ANTERIOR Routine 03/18/2025 1:30 PM EDT CASE PRESENTATION, DETAILED AND EXTENSIVE TREATMENT PLANNING Routine 02/18/2025 1:15 PM EDT CONSULTATION - DIAGNOSTIC SERVICE PROVIDED BY DENTIST OR PHYSICIAN OTHER THAN REQUESTING DENTIST OR PHYSICIAN Routine 02/18/2025 1:15 PM EDT 24 INTRAORAL - PERIAPICAL FIRST RADIOGRAPHIC IMAGE Routine 02/18/2025 1:15 PM EDT 11 INTRAORAL - PERIAPICAL EACH ADDITIONAL RADIOGRAPHIC IMAGE Routine 02/18/2025 1:15 PM EDT PROPHYLAXIS - ADULT Routine 10/26/2024 2 :00 PM EST Dental calculus Gingival bleeding Periodontal disease BITEWINGS - 2 RADIOGRAPHIC IMAGES Routine 10/26/2024 2:00 PM EST Missing teeth, acquired Dental abscess Dental calculus Gingival bleeding Periodontal disease PERIODIC ORAL EVALUATION - ESTABLISHED PATIENT Routine 10/26/2024 2:00 PM EST BI MAMMOGRAM SCREENING TOMOSYNTHESIS BILATERAL Routine 05/21/2024 1:33 PM EDT LIPID PANEL WITH REFLEX TO DIRECT LDL Routine 04/23/2024 3:47 PM EDT Acquired hypothyroidism from Last 3 Months or Most Recently Relevant to Health Maintenance Results * BI Mammogram Screening Tomosynthesis Bilateral (05/21/2024 1:33 PM EDT) Anatomical Region Laterality Modality Breast Bilateral Mammography 05/21/2024 1:33 PM EDT Narrative 06/19/2024 6:09 AM EDT [place] [facility] [address] [place] [address] Mammography Report Signed Patient: Chelsi Hobbs MR#: [id number] : 1950 Acct:[id number] Age/Sex: 74 / F ADM Date: 05/21/24 Loc: [facility] Attending Dr: Gale Tubbs MD Ordering Physician: Gale Calhoun MD Results: 2Benign Findings Date of Service: 05/21/24 Follow Up: [facility] Procedure(s): MM tomosynthesis screening BI Accession Number(s): [id number] cc: Gale Calhoun MD EXAMINATION: MM SCREENING DIGITAL BREAST TOMOSYNTHESIS, BILATERAL CLINICAL INFORMATION: Screening. Asymptomatic. COMPARISON: Mammography: This study is compared with prior exams dating back to 2019. TECHNIQUE: Digital breast tomosynthesis is performed in both the craniocaudal and mediolateral oblique views along with computer-aided detection (CAD). Synthesized 2D images are generated from the tomosynthesis. FINDINGS: There are scattered areas of fibroglandular density (ACR BI-RADS breast composition Category b). There are no significant masses, abnormal calcifications, or other abnormalities. Benign calcifications are present in each breast. MM/MM tomosynthesis screening BI IMPRESSION: No mammographic evidence of malignancy. ASSESSMENT: BI-RADS BI-RADS 2 - Benign Findings RECOMMENDATION: Routine annual mammography screening. 1 year F/U This examination should not preclude the clinical evaluation of a suspicious palpable abnormality. This patient's information was entered into a reminder system with a target due date for their next mammogram. Electronically signed by: Asia Senior MD 06/19/2024 06:06 AM EDT Dictated By: Asia Senior MD Signed By: <Electronically signed by Asia Senior MD in OV> 06/19/24 0606 DD/ 1333 TD/TT: 05/21/24 1351 Ager Operator: Procedure Note Donotuseinterpreter, Image - 06/19/2024 [place] [facility] [address] [place] [address] Mammography Report Signed Patient: Chelsi Hobbs EMR#: [id number] : 1950Acct:[id number] Age/Sex: 74 / FADM Date: 05/21/24 Loc: [facility] Attending Dr: Gale Tubbs MD Ordering Physician: Gale Calhoun MDResults: 2Benign Findings Date of Service: 05/21/24Follow Up: 1 Year From Orig inal Mammogram Procedure(s): MM tomosynthesis screening BI Accession Number(s): [id number] cc: Gale Calhoun MD EXAMINATION: MM SCREENING DIGITAL BREAST TOMOSYNTHESIS, BILATERAL CLINICAL INFORMATION: Screening. Asymptomatic. COMPARISON: Mammography: This study is compared with prior exams dating back to 2019. TECHNIQUE: Digital breast tomosynthesis is performed in both the craniocaudal and mediolateral oblique views along with computer-aided detection (CAD). Synthesized 2D images are generated from the tomosynthesis. FINDINGS: There are scattered areas of fibroglandular density (ACR BI-RADS breast composition Category b). There are no significant masses, abnormal calcifications, or other abnormalities. Benign calcifications are present in each breast. MM/MM tomosynthesis screening BI IMPRESSION: No mammographic evidence of malignancy. ASSESSMENT: BI-RADS BI-RADS 2 - Benign Findings RECOMMENDATION: Routine annual mammography screening. 1 year F/U This examination should not preclude the clinical evaluation of a suspicious palpable abnormality. This patient's information was entered into a reminder system with a target due date for their next mammogram. Electronically signed by: Asia Senior MD 06/19/2024 06:06 AM EDT Dictated By: Asia Senior MD Signed By: <Electronically signed by Asia Senior MD in OV> 06/19/24 0606 DD/ 1333 TD/TT: 05/21/24 1351 Ager Operator: us Gale Tubbs MD IMG BI PROCEDURES Fin al Result * Lipid Panel with Reflex to Direct LDL (04/23/2024 3:47 PM EDT) Triglycerides 94 <150 mg/dL [facility] Comment:Desirable Triglyceri de: less than 150 mg/dLBorderline High Triglyceride 150-199 mg/dLHigh Triglyceride: 200-499 mg/dLVery High Triglyceride: greater than or equal to 5OO mg/dL Cholesterol 179 <200 mg/dL [facility] Comment:Desirable Cholestero l: less than 200 mg/dLBorderline High Cholesterol: 200-239 mg/dLHigh Cholesterol: greater than 239 mg/dL LDL Cholesterol Calculated 87 <100 mg/dL [facility] Comment:Desirable LDL: less than 100 mg/dLNear Optimal/Above Optimal LDL: 110- 129 mg/dLBorderline High LDL: 130-159 mg/dLHigh LDL: 160-189 mg/dLVery High LDL: greater than or equal to 190 mg/dL HDL Cholesterol 74 >40 mg/dL [facility] Comment:Desirable HDL: great er than 40 mg/dL Note: This HDL assay may give artificially low results in patients with liver disease. Blood 04/23/2024 3:47 PM EDT 04/23/2024 5:40 PM EDT Gale Tubbs MD LAB BLOOD ORDERABLES Final Result [facility] [address] [place] [phone] from Last 3 Months or Most Recently Relevant to Health Maintenance Insurance MEDICARE [facility] - [facility] PARTIAL (MEDICAID) Care Teams Human Resources Generalist Relationship Specialty Start Date End Date Gale Calhoun MD [address] [place] [phone] PCP - General Family Medicine 01/23/16
[2025-04-29 17:39] LABS: Alanine Aminotransferase 11 U/L (0-31); Albumin Level 4.4 g/dL (3.5-5.0); Alkaline Phosphatase 88 U/L (39-117); Anion Gap 12 (12-20); Aspartate Amino Transferase 21 U/L (5-31); Blood Urea Nitrogen 13 mg/dL (9-16); Calcium 9.6 mg/dL (8.4-10.2); Carbon Dioxide 30 mmol/L (22-29); Chloride 105 mmol/L (96-108); Estimated Glomerular Filt Rate 49; Potassium 4.5 mmol/L (3.3-5.1); Sodium 142 mmol/L (135-145); Total Protein 7.2 g/dL (6.5-8.0)
[2025-04-29 17:56] LABS: Folate 7.0 ng/mL (> or = 4.0); Vitamin B12 196 pg/mL (200-900)
[2025-04-30 08:15] LABS: ~HepC Num1 0.14 S/CO (0.00-0.79); ~Hepatitis C Antibody Nonreactive (Nonreactive)
== END 2025-04-29 14:21 | disposition home or self-care (01) ==
LOC: HO.HHCL 14:20
PROVIDERS: PCP Internal Medicine; Visit Provider Internal Medicine
DX: F41.8 Other specified anxiety disorders (principal); Z11.59 Encounter for screening for other viral diseases
CPT/HCPCS: 36415; 80053; 82607; 82746; 84443; 86803

== ENCOUNTER 2025-05-27 13:14 | Outpatient (REF) | payer MEDICARE, MEDICAID, SELFPAY ==
--- OUTSIDE RECORDS SUMMARY | 2025-05-27 13:25 | XMS_ITS | Clinical Summary ---
Author Organization [employer] Address [address] [place] [address] Care Team Providers Care Tassel Clipper Name Role Phone Gale Calhoun MD Primary Care Provide r Allergies Active Allergy Reactions Criticality Noted Date Comments Ibuprofen 04/23/2024 Penicillins 08/10/2021 Yeast infection Medications * This document contains information received from the source organization and may not represent a complete record from that organization. cholecalciferol (Vitamin D-3) 50 MCG (1999) capsule Take 1 capsule by mouth at bed time. 08/16/20 19 Active lidocaine (Lidoderm) 5 % patch APPLY 1 PATCH TOPICALLY TO SKIN DAILY, MAY WEAR UP TO 12 HOURS 05/06/20 22 Active Blood Pressure Monitoring (Omron 3 Series BP Monitor) device USE TO CHECK BLOOD PRESSURE DAILY DIRECTED 05/06/20 22 Active chlorhexidine (Peridex) 0.12 % solution Swish [...] MORNING. 90 tablet 1 01/03/20 25 Active losartan (Cozaar) 25 MG tabletIndications :Primary hypertension TAKE ONE TABLET BY MOUTH EVERY DAY IN THE MORNING 90 tablet 1 03/05/20 25 Active azithromycin (Zithromax) 250 MG tablet Take (2) tabs 1st day; take (1) tab next 4 days. 6 tablet 04/08/20 25 Active levothyroxine (Synthroid, Levoxyl) 112 MCG tabletIndications :Acquired hypothyroidism TAKE ONE TABLET BY MOUTH EVERY DAY BEFORE BREAKFAST 90 tablet 1 05/15/20 25 Active levothyroxine (Synthroid, Levoxyl) 112 MCG tabletIndications :Acquired hypothyroidism TAKE ONE TABLET BY MOUTH EVERY DAY BEFORE BREAKFAST 90 tablet 02/15/20 25 025 Discontinued pentazocine-nalox one (Talwin NX) 50-0.5 MG tabletIndications :Primary osteoarthritis of both knees Take 1 tablet by mouth every 4 (four) hours if needed for mild pain for up to 28 days. 140 tablet 1 04/17/20 25 025 Active Problems Problem Noted Date Diagnosed Date Depression with anxiety 04/29/2025 Assessment & Plan (04/29/2025 5:14 PM EDT): Extensive counseling done today Medication discussion was done today, patient declines medications for now I will refer her to [facility] Long-term current use of opiate analgesic 2024 [...] 06/27/2023 Primary hypertension 02/22/2023 Assessment & Plan (04/29/2025 5:15 PM EDT): Controlled continue same medication regimen Assessment & Plan (10/29/2024 2:53 PM EST): [...] pentazocine Acquired hypothyroidism 01/05/2023 Assessment & Plan (04/29/2025 5:14 PM EDT): TSH will be checked with labs Assessment & Plan (10/29/2024 2:54 PM EST): TSH will be check today C/w same levothyroxine 112mcg daily Assessment & Plan (06/27/2023 2:24 PM EDT): TSH will be check with labs Alopecia 01/05/2023 Chronic low back pain 01/05/2023 Stage 3 chronic kidney disease 04/30/2022 Assessment & Plan (04/29/2025 5:15 PM EDT): He was advised with blood pressure control, avoid nephrotoxic medications Pain in face 09/11/2018 Encounters * This document contains information received from the source organization and may not represent a complete record from that organization. Date Type Department Care Team Description 05/15/[address] [address] Gale Calhoun MD Acquired hypothyroidism 04/29/2025 3:30 PM EDT Office Visit [facility]ULT [facility] [address] [place] [address] Sunday Pimentel, SHIRAS Dental abscess (Primary Dx) 04/29/2025 1:45 PM EDT Office Visit [address] [address] Gale Calhoun MD Acquired hypothyroidism (Primary Dx); Depression with anxiety; Stage 3 chronic kidney disease, unspecified whether stage 3a or 3b CKD ([facility]/HCC); Primary hypertension 04/29/2025 Travel 04/26/[address] [address] Gale Calhoun MD Chart Prep 04/22/2025 Patient Outreach [facility] [address] [place] [address] Gale Calhoun MD Pre-visit Planning (SDOH screening negative and Tobacco screening negative) 04/16/2025 Refill [facility] [address] [place] [address] Gale Calhoun MD Primary osteoarthritis of both knees 04/08/2025 1:00 PM EDT Office Visit [facility] [address] [place] [address] Cassandra Colbert DDS 03/29/2025 11:30 AM EDT Telemedicine [facility] [address] [place] [address] Danita Mercedes RN Long-term current use of opiate analgesic 03/29/2025 Travel 03/18/2025 1:30 PM EDT Office Visit [facility] ADULT DENTAL [address] [place] [address] Domingo Craig DMD 03/11/2025 Travel 03/05/2025 Refill [facility] [address] [place] [address] Gale Calhoun MD Primary hypertension from Last 3 Months Family History Medical [...] Info) Description 07/01/2025 3:30 PM EDT Telemedicine [facility] [address] [place] [address] Gale Calhoun MD [address] [place] [address] 07/19/2025 11:00 AM EDT Telemedicine [facility] [address] [place] [address] Danita Mercedes, RN Health Maintenance Due Date Last Done Comments CT Colonography 1950 Colonoscopy 1950 Colorectal Cancer Screening 1950 FIT DNA/Cologuard 1950 FIT 1950 FOBT 1950 Sigmoidoscopy 1950 DTaP/Tdap/Td Vaccines (1 - Tdap) 1969 Pneumococcal [...] older (1 - 1-dose 75+ series) 2025 Influenza Vaccine (#1) 2025 Dental X-Ray: Bitewings 10/27/2025 10/26/2024, 08/15 Depression Screening 10/29/2025 10/29/2024, 10/29/19 25 SDOH Screening 04/22/2026 04/22/2025 Alcohol/Substance Use Screening 04/29/2026 04/29/2025 Tobacco Screening 04/29/2026 04/29/2025 Lipid Panel 04/23/2029 04/23/2024, 06/17, 06/10/2022, Additional history exists Hepatitis C Screening Completed 04/29/2025 HIB Vaccines Aged Out No longer eligi [...] Procedure Name Priority Date/Time Associated Diagnosis Comments CASE PRESENTATION, DETAILED AND EXTENSIVE TREATMENT PLANNING Routine 04/29/2025 3:30 PM EDT 24 ENDODONTIC THERAPY, ANTERIOR TOOTH Routine 04/29/2025 3:30 PM EDT VITAMIN B12/FOLATE, SERUM PANEL Routine 04/29/2025 2:24 PM EDT Depression with anxiety TSH W/REFLEX TO FT4 Routine 04/29/2025 2 :24 PM EDT Depression with anxiety HEPATITIS C AB W/REFL TO HCV RNA, QN, PCR Routine 04/29/2025 2:24 PM EDT Depression with anxiety COMPREHENSIVE METABOLIC PANEL Routine 04/29/2025 2:24 PM EDT Depression with anxiety RE-EVAL - LIMITED, PROBLEM FOCUSED (EST PATIENT; NOT POST-OP VISIT) Routine 04/08/2025 1:00 PM EDT CASE PRESENTATION, DETAILED AND EXTENSIVE TREATMENT PLANNING Routine 03/18/2025 1:30 PM EDT 11 ML RESIN-BASED COMPOSITE - 2 SURF, ANTERIOR Routine 03/18/2025 1:30 PM EDT PROPHYLAXIS - ADULT Routine 10/26/2024 2 :00 PM EST Dental calculus Gingival bleeding Periodontal disease BITEWINGS - 2 RADIOGRAPHIC IMAGES Routine 10/26/2024 2:00 PM EST Missing teeth, acquired Dental abscess Dental calculus Gingival bleeding Periodontal disease PERIODIC ORAL EVALUATION - ESTABLISHED PATIENT Routine 10/26/2024 2:00 PM EST LIPID PANEL WITH REFLEX TO DIRECT LDL Routine 04/23/2024 3:47 PM EDT Acquired hypothyroidism from Last 3 Months or Most Recently Relevant to Health Maintenance Results * (ABNORMAL) Vitamin B12/Folate, Serum Panel (04/29/2025 2:24 PM EDT) Vitamin B12 196(L) 200 - 900 pg/mL [facility] Comment:NORMAL 200-900 PG/ML INDETERMINATE 160-199 PG/ML DEFICIENT < 160 PG/ML Folate 7.0 > or = 4.0 ng/mL [facility] Comment:Reference Values:> o r = 4.0 ng/mL< 4.0 ng/mL suggests folate deficiency Methotrexate, aminopterin and folinic acid(leucovorin) are chemotherapeutic agents whose molecularstructures are similar to folate; therefore, the Architectfolate assay cannot be used for patients using these drugs. Blood Venous blood specimen / Unknown 04/29/2025 2:24 PM EDT 04/29/2025 4:41 PM EDT us Gale Tubbs MD LAB BLOOD ORDERABLES Final Result Performing Organization Address City/[facility]/ZIP Co de Phone Number [facility] [address] [place] [phone] * TSH with Reflex to Free T4 (04/29/2025 2:24 PM EDT) Pathologist [facility] [place] TSH reflex Free T4 2.62 0.32 - 4.0 uIU/mL [facility] Blood Venous blood specimen / Unknown 04/29/2025 2:24 PM EDT 04/29/2025 4:41 PM EDT us Gale Tubbs MD LAB BLOOD ORDERABLES Final Result Performing Organization Address City/[facility]/ZIP Co de Phone Number [facility] [address] [place] [phone] * Hepatitis C Antibody with Reflex to HCV, RNA, Quantitative, Real-Time PCR (04/29/2025 2:24 PM EDT) Pathologist [facility] [place] Hepatitis C Antibody Nonreactive Nonreactive [facility] Comment:Antibodies to HCV no t detected; does not exclude early acuteHCV infection. Blood Venous blood specimen / Unknown 04/29/2025 2:24 PM EDT 04/29/2025 4:41 PM EDT us Gale Tubbs MD LAB BLOOD ORDERABLES Final Result [facility] [address] [place] [address] [phone] * (ABNORMAL) Comprehensive Metabolic Panel (04/29/2025 2:24 PM EDT) Sodium 142 135 - 145 mmol/L [facility] Potassium 4.5 3.3 - 5.1 mmol/L [facility] Chloride 105 96 - 108 mmol/L [facility] Carbon Dioxide 30(H) 22 - 29 mmol/L [facility] Anion Gap 12 12 - 20 [facility] Urea Nitrogen (BUN) 13 9 - 16 mg/dL [facility] Creatinine, Serum 1.09 0.5 - 1.4 mg/dL [facility] Estimated Glomerular Filt Rate 49 [facility] Comment:Chronic Kidney Disea se: Estimated GFR < 60 mL/min/1.65n7Pwbnsw Kidney Disease: Estimated GFR < 15 mL/min/1.73m2 Glucose 94 60 - 115 mg/dL [facility] Calcium 9.6 8.4 - 10.2 mg/dL [facility] Bilirubin, Total 0.6 0.0 - 1.0 mg/dL [facility] Aspartate Amino Transferase 21 5 - 31 U/L [facility] Alanine Aminotransferase 11 0 - 31 U/L [facility] Total Protein 7.2 6.5 - 8.0 g/dL [facility] Albumin Level 4.4 3.5 - 5.0 g/dL [facility] Alkaline Phosphatase 88 39 - 117 U/L [facility] Blood Venous blood specimen / Unknown 04/29/2025 2:24 PM EDT 04/29/2025 4:41 PM EDT us Gale Tubbs MD LAB BLOOD ORDERABLES Final Result Performing Organization Address [facility]/ZIP Co de Phone Number [facility] [address] [place] [address] [phone] * Lipid Panel with Reflex to Direct LDL (04/23/2024 3:47 PM EDT) Triglycerides 94 <150 mg/dL [facility] Comment:Desirable Triglyceri de: less than 150 mg/dLBorderline High Triglyceride 150-199 mg/dLHigh Triglyceride: 200-499 mg/dLVery High Triglyceride: greater than or equal to 5OO mg/dL Cholesterol 179 <200 mg/dL [facility] Comment:Desirable Cholestero l: less than 200 mg/dLBorderline High Cholesterol: 200-239 mg/dLHigh Cholesterol: greater than 239 mg/dL LDL Cholesterol Calculated 87 <100 mg/dL [facility] Comment:Desirable LDL: less than 100 mg/dLNear Optimal/Above Optimal LDL: 110- 129 mg/dLBorderline High LDL: 130-159 mg/dLHigh LDL: 160-189 mg/dLVery High LDL: greater than or equal to 190 mg/dL HDL Cholesterol 74 >40 mg/dL [facility] Comment:Desirable HDL: great er than 40 mg/dL Note: This HDL assay may give artificially low results in patients with liver disease. Blood 04/23/2024 3:47 PM EDT 04/23/2024 5:40 PM EDT us Gale Tubbs MD LAB BLOOD ORDERABLES Final Result Performing Organization Address City/[facility]/ZIP Co de Phone Number [facility] [address] [place] [address] [phone] from Last 3 Months or Most Recently Relevant to Health Maintenance Insurance MEDICARE [facility] D[facility] - HSN PARTIAL (MEDICAID) Care Teams Tassel Clipper Relationship Specialty Start Date End Date Gale Calhoun MD [address] [place] [address] [place] [phone] PCP - General Family Medicine 01/23/16
--- OUTSIDE RECORDS SUMMARY | 2025-05-27 13:25 | XMS_ITS | Clinical Summary ---
Author Organization [facility] Address [address] [place] [phone] Phone Care Team Providers Care Plastic And Reconstructive Surgeon Name Role Phone Gale Calhoun MD Primary [...] Visit [facility] [address] [place] [phone] Jatin Rincon MD [address] [facility] [address] [place] [phone] Health Maintenance Due Date Last Done Comments [...] Medicaid [place] Care Teams Plastic And Reconstructive Surgeon Relationship Specialty Start Date End Date Gale Calhoun MD PCP - General Internal Medicine 06/10/21
== END 2025-05-27 13:15 | disposition home or self-care (01) ==
LOC: HO.MAMMO 13:14
PROVIDERS: PCP Internal Medicine; Visit Provider Internal Medicine
DX: Z12.31 Encounter for screening mammogram for malignant neoplasm of breast (principal)
CPT/HCPCS: 77063; 77067

== ENCOUNTER → 2025-05-27 13:30 | Outpatient (BNV) | payer MEDICARE, MEDICAID, SELFPAY | PROVIDERS: PCP Internal Medicine; Visit Provider Radiology Body Imaging | DX: Z12.31 Encounter for screening mammogram for malignant neoplasm of breast (principal) | CPT/HCPCS: 77063; 77067 ==

== ENCOUNTER 2025-10-07 11:58 | Outpatient (REF) | payer MEDICARE, MEDICAID, SELFPAY ==
[2025-10-07 13:37] LABS: MANUAL DIFF FLAG NO
[2025-10-07 13:56] LABS: Hematocrit 41.2 % (37.0-47.0); Hemoglobin 12.9 g/dl (12.0-16.0); Imm Gran Abs Auto 0.05 X10*3/uL (0.00-0.03); Imm Gran Pct Auto 0.4 % (0.0-0.4); Lymphocytes Absolute Auto 3.7 X10*3/uL (1.2-4.9); Mean Corpuscular HGB Conc 31.3 g/dl (31.0-35.0); Mean Corpuscular Hemoglobin 26.4 pg (27.0-33.0); Mean Corpuscular Volume 84.3 fL (80.0-98.0); NRBC Abs Auto 0.000 X10*3/uL (0.0-0.012); NRBC Pct Auto 0.0 /100WBC (0.0-0.2); Platelet Count 378 X10*3/uL (160-400); Red Blood Count 4.89 X10*6/uL (4.20-5.50); White Blood Count 11.9 X10*3/uL (4.8-10.8)
[2025-10-07 14:16] LABS: Appearance Urine Clear; Glucose Urine UA Negative (Negative); PH 7.0 (5.0-9.0); Specific Gravity - Urine 1.020 (1.005-1.025); UMIC TRIGGER UA YES
[2025-10-07 14:48] LABS: Microalbum/Creatinine Ratio Ur 9.9 ug/mg cr (<30); Total Protein Urine Random 13 mg/dL (<12)
--- OUTSIDE RECORDS SUMMARY | 2025-10-07 15:17 | XMS_ITS | Encounter Summary ---
Author Organization [employer] Address [address] [place] [address] Care Team Providers Care Labor Delivery Specialist Name Role Phone Gale Calhoun MD Primary Care Provide r Reason for Visit * Reason Comments Med Refill Encounter Details Date Type Department Care Team ([facility] st Contact Info) Description 12/03/2023 Refill [facility] [address] [place], [place] [phone] Gale Calhoun MD [address] [place], [place] [phone] Acquired hypothyroidism Social History Tobacco Use Types Packs/Day Years Used Date Smoking Tobacco: Never Smokeless Tobacco: Never Alcohol Use Standard Drinks/Week Comments Never 0 (1 standard drink = 0.6 oz pur e alcohol) Depression Answer Date Recorded Patient Health Questionnaire-9 Score 7 06/27/2023 Housing Stability Answer Date Recorded What is your housing situation today? I have ezracarlos kiser 08/01/[address] you li ve. Do you have problems with any of the following? None of the above 08/01/2023 Food Insecurity Answer Date Recorded Within the past 12 months, y ou worried that your food would run out before you got money to buy more: Never True 08/01/2023 Within the past 12 months,th e food you bought just didn't last and you didn't have enough money to get more: Never True Transportation Answer Date Recorded In the past 12 months, has l ack of transportation kept you from medical appts, meetings, work or from getting things needed for daily living? No 08/01/2023 Utilities Answer Date Recorded In the past 12 months, has t he electric, gas, oil or water company threatened to shut off services in your home? No 08/01/2023 Depression Answer Date Recorded Patient Health Questionnaire-2 Score 3 06/27/2023 Comments Unknown Sex and Gender Information Value Date Recorded Sex Assigned at Female 08/16/2022 10:29 AM EDT Legal Sex Female 10:29 AM EDT Gender Identity Female 08/16/2022 10:29 AM EDT Sexual Orientation Straight 08/16/2022 10 :29 AM EDT documented as of this encounter Plan of Treatment Upcoming Encounters Date Type Department Care Team (Late st Contact Info) Description 11/18/2025 3:00 PM EST Office Visit [facility] ADULT DENTAL [address] [place] [address] Domingo Craig DMD [address] [place] [address] 11/20/2025 3:00 PM EST Office Visit [facility] AD[facility] [address] [place] [address] Kendra Lee [address] [place] [address] 11/22/2025 1:30 PM EST Telemedicine [facility] [address] [place] [address] Danita Mercedes RN 11/25/2025 3:00 PM EST Office Visit [facility] [address] [place] [address] Geremias Mcintosh documented as of this encounter Visit Diagnoses Diagnosis Acquired hypothyroidism Unspecified hypothyroidism documented in this encounter Additional Health Concerns Assessment Noted Time PHQ-9 Depression Total Score: 7 06/27/20 23 1:50 PM EDT documented as of this encounter Care Teams Labor Delivery Specialist Relationship Specialty Start Date End Date Gale Calhoun MD [address] [place] [phone] PCP - General Family Medicine 01/23/16 documented as of this encounter
--- OUTSIDE RECORDS SUMMARY | 2025-10-07 15:17 | XMS_ITS | Encounter Summary ---
Author Organization [employer] Address [address] [place] [address] Care Team Providers Care Photo Retoucher Name Role Phone Gale Calhoun MD Primary Care Provide r Encounter Details Date Type Department Care Team (Late st Contact Info) Description 07/19/[address] [facility] [address] [place] [address] Gale Calhoun MD [address] [place], [place] [phone] Social History Tobacco Use Types Packs/Day Years Used Date Smoking Tobacco: Never Passive Smoke Exposure: Never Smokeless Tobacco: Never Alcohol Use Standard Drinks/Week Comments Never 0 (1 standard drink = 0.6 oz pur e alcohol) Depression Answer Date Recorded Patient Health Questionnaire-9 Score 2 07/16/2025 Patient Health Questionnaire-9 Score 2 07/16/2025 Last PHQ-9: Questionnaire Data Not on file 0 07/16/2025 Housing Stability Answer Date Recorded What is [...] Date Recorded Patient Health Questionnaire-2 Score 1 07/16/2025 Internet Access Answer Date Recorded Internet Access [...] Description 11/18/2025 3:00 PM EST Office Visit [facility] ADULT DENTAL [address] [place] [address] Domingo Craig, CELESTINA [address] [place] [address] 11/20/2025 3:00 PM EST Office Visit [facility] ADULT DENTAL [address] [place] [address] Kendra Lee [address] [place] [address] 11/22/2025 1:30 PM EST Telemedicine [facility] [address] [place] [address] Danita Mercedes RN 11/25/2025 3:00 PM EST Office Visit [facility] [address] [place] [address] Geremias Mcintosh documented as of this encounter Visit Diagnoses Not on filedocumented in this encounter Additional Health Concerns Assessment Noted Time PHQ-9 Depression Total Score: 2 07/16/20 25 10:23 AM EDT documented as of this encounter Care Teams Photo Retoucher Relationship Specialty Start Date End Date Gale Calhoun MD [address] [place] [address] PCP - General Family Medicine 01/23/16 documented as of this encounter
--- OUTSIDE RECORDS SUMMARY | 2025-10-07 15:17 | XMS_ITS | Encounter Summary ---
Author Organization [employer] Address [address] [place] [address] [address] [place] [address] Care Team Providers Care Insurance Counsel Name Role Phone Gale Calhoun MD Primary Care Provide r Encounter Details Date Type Department Care Team (Late st Contact Info) Description 10/25/2022 Orders Only [facility] [address] [place] [address] Elli Clark LPN Social History Tobacco Use Types Packs/Day Years Used Date Smoking Tobacco: Never Assessed Comments Unknown Sex and Gender Information Value Date Recorded Sex Assigned at Female 08/16/2022 10:29 AM EDT Legal Sex Female 10:29 AM EDT Gender Identity Female 08/16/2022 10:29 AM EDT Sexual Orientation Straight 08/16/2022 10 :29 AM EDT COVID-19 Exposure Response Date Recorded In the last 10 days, have yo u been in contact with someone who was confirmed or suspected to have Coronavirus/COVID-19? No / Unsure 10/26/2022 12:52 PM EST documented as of this encounter Plan of Treatment Upcoming Encounters Date Type Department Care Team (Late st Contact Info) Description 11/18/2025 3:00 PM EST Office Visit [facility] ADULT DENTAL [address] [place] [address] Domingo Craig, DMD [address] [place] [address] 11/20/2025 3:00 PM EST Office Visit [facility] ADULT DENTAL [address] [place] [address] RosaKendra [address] [place] [address] 11/22/2025 1:30 PM EST Telemedicine [facility] [address] [place] [address] Danita Mercedes RN 11/25/2025 3:00 PM EST Office Visit [facility] ADULT DENTAL [address] [place] [address] Geremias Mcintosh documented as of this encounter Visit Diagnoses Not on filedocumented in this encounter Care Teams Insurance Counsel Relationship Specialty Start Date End Date Gale Calhoun MD [address] [place] [address] PCP - General Family Medicine 01/23/16 documented as of this encounter
--- OUTSIDE RECORDS SUMMARY | 2025-10-07 15:17 | XMS_ITS | Encounter Summary ---
Author Organization [employer] Address [address] [place] [address] [address] [place] [address] Care Team Providers Care Jig And Fixture Repairer Name Role Phone Gale Calhoun MD Primary Care Provide r Encounter Details Date Type Department Care Team (Latest Contact Info) Description 08/17/2021 Abstract [facility] Dental, Provider, DDS Social History Tobacco Use Types Packs/Day Years [...] Description 11/18/2025 3:00 PM EST Office Visit [facility] ADULT DENTAL [address] [place] [address] Domingo Craig, CELESTINA [address] [place], [place] [phone] 11/20/2025 3:00 PM EST Office Visit [facility] ADULT DENT[facility] [address] [place] [address] Knedra Lee [address] [place] [address] 11/22/2025 1:30 PM EST Telemedicine [facility] [address] [place] [address] Danita Mercedes RN 11/25/2025 3:00 PM EST Office Visit [facility] [address] [place] [address] Geremias Mcintosh documented as of this encounter Visit Diagnoses Not on filedocumented in this encounter Care Teams Jig And Fixture Repairer Relationship Specialty Start Date End Date Gale Calhoun MD [address] [place] [address] PCP - General Family Medicine 01/23/16 documented as of this encounter
--- OUTSIDE RECORDS SUMMARY | 2025-10-07 15:17 | XMS_ITS | Clinical Summary ---
Author Organization [employer] Address [address] [facility] [address] 7[address] [place] [address] Care Team Providers Care Treatment Specialist Name Role Phone Gale Calhoun MD Primary Care Provide r Allergies Active Allergy Reactions Criticality Noted Date Comments Ibuprofen 04/23/2024 Penicillins 08/10/2021 Yeast infection Medications * This document contains information received from the source organization and may not represent a complete record from that organization. cholecalciferol (Vitamin D-3) 50 MCG (1999 UT) [...] following use. 473 mL 10/09/20 24 Active azithromycin (Zithromax) 250 MG tablet Take (2) tabs 1st day; take (1) tab next 4 days. 6 tablet 04/08/20 25 Active levothyroxine (Synthroid, Levoxyl) 112 MCG tabletIndications: Acquired hypothyroidism TAKE ONE TABLET BY MOUTH EVERY DAY BEFORE BREAKFAST 90 tablet 1 07/30/20 25 Active pravastatin (Pravachol) 40 MG tabletIndications: Primary hypertension TAKE ONE TABLET BY MOUTH EVERY MORNING. 90 tablet 1 06/26/20 25 Active naloxone (Narcan) 4 mg/0.1 mL nasal sprayIndications:L raymond-term current use of opiate analgesic Administer 1 spray (4 mg) into affected nostril(s) if needed for opioid reversal. May repeat every 2-3 minutes if needed, alternating nostrils, until medical assistance becomes available. 2 each 3 07/19/20 25 026 Active omeprazole (PriLOSEC) [address] capsuleIndications :Chronic GERD TAKE ONE CAPSULE BY MOUTH EVERY DAY BEFORE BREAKFAST 90 capsule 2 09/02/20 25 Active losartan (Cozaar) 25 MG tabletIndications: Primary hypertension TAKE ONE TABLET BY MOUTH EVERY DAY IN THE MORNING 90 tablet 1 09/02/20 25 Active pentazocine-naloxo ne (Talwin NX) 50-0.5 MG tabletIndications: Primary osteoarthritis of both knees Take 1 tablet by mouth every 4 (four) hours if needed for mild pain. MAX use of 5 times per day. 140 tablet 09/02/20 25 Active Active Problems Problem Noted Date Diagnosed Date Preoperative examination 07/16/2025 Assessment & Plan (07/16/2025 10:42 AM EDT): 75yo patient with multiple medical conditions here for preop evaluation. Most of her medical conditions are stable enough so that she can safely undergo planned procedure. She is a low risk patient. She's/he's undergoing an low risk procedure. The risk of CV complication according to [employer]CRI is 0.5. Which is average for her age. At this time SHE IS ON OPTIMAL CONDITION for planned procedure. -Meds adjusted for the day of surgery as below: Take losartan and omeprazole on the morning of the surgery with a sip of water + Talwin as needed for pain with a sip of water -Call back KASANDRA should he develops fever, cough, SOB, CP, UTI sxs or any other acute issue. Depression with anxiety 04/29/2025 Assessment & Plan (07/16/2025 10:38 AM EDT): It usually manifests as coughing episodes the last few minutes. Patient's anxiety is usually controlled with breathing exercises, she may need low-dose of anxiety medication prior to surgery to prevent episodes of coughing. Assessment & Plan (04/29/2025 5:14 PM EDT): Extensive counseling done today Medication discussion was done today, patient declines medications for now I will refer her to [facility] Long-term current use of opiate analgesic 2024 Assessment & Plan (07/16/2025 10:37 AM EDT): Patient is taking Talwin for chronic low back pain and hip pain, she is advised to take her regular dose of opiate medication on the day of the surgery with a sip of water. Anesthesia will be made aware so they will not use any opiate antagonist or medications that would interact with opiates. Patient to continue taking medications as prescribed in the postop and monitor for withdrawal symptoms if medication is not provided. GERD (gastroesophageal reflux disease) Assessment & Plan [...] 06/27/2023 Primary hypertension 02/22/2023 Assessment & Plan (07/16/2025 10:35 AM EDT): BP is at goal, will continue to follow-up with PCP She will take losartan in the morning of the surgery with a sip of water. Further monitoring per anesthesia Assessment & Plan (04/29/2025 5:15 PM EDT): [...] pain 01/05/2023 Stage 3 chronic kidney disease (CMS/HCC) 022 Assessment & Plan (04/29/2025 5:15 PM EDT): He was advised with blood pressure control, avoid nephrotoxic medications Pain in face 09/11/2018 Encounters Date Type Department Care Team Description 09/04/2025 Refill [facility] [address] [place] [address] Gale Calhoun MD Chronic GERD 09/01/2025 Refill [facility] [address] [place] [address] Gale Calhoun MD Primary osteoarthritis of both knees 09/01/2025 Refill [facility] [address] [place] [address] Gale Calhoun MD Chronic GERD; Primary hypertension 07/19/2025 11:00 AM EDT Telemedicine [facility] [address] [place] [address] Danita Mercedes RN Long-term current use of opiate analgesic 07/19/2025 Orders Only [facility] [address] [place] [address] Gale Calhoun MD 07/19/2025 Telephone [facility] [address] [place], [place] [phone] Gale Calhoun MD Medication Question 07/19/2025 Refill [facility] [address] [place] [phone] Danita Mercedes RN Long-term current use of opiate analgesic (Primary Dx) 07/19/2025 Travel 07/16/2025 9:15 AM EDT Office Visit [address] [address] Coleen Brock MD Preoperative examination (Primary Dx); Primary hypertension; Long-term current use of opiate analgesic; Depression with anxiety 07/16/[address] [address] Coleen Brock MD Preop notes 07/16/2025 Travel 07/15/[address] [address] Gale Calhoun MD Chart Prep 07/10/[address] [address] Gale Calhoun MD chart prep from Last 3 Months Family History Medical [...] your housing situation today? I have ezra rashel 04/22/[address] you li [...] Sign Reading Time Taken Comments Blood Pressure 126/82 07/16/2025 9:32 AM EDT Pulse 58 07/16/2025 9:32 AM EDT Temperature 36.1 C (97 F) 07/16/2025 9:14 AM EDT Respiratory Rate 12 07/16/2025 9:14 AM EDT Oxygen Saturation 95% 04/29/2025 2:00 PM EDT Inhaled Oxygen Concentration - - Weight 82.3 kg (181 lb 6 oz) 07/16/2025 9:14 AM EDT Height 161.9 cm (5' 3.75 ) 07/16/2025 9:14 AM ED T Body Mass Index 31.38 07/16/2025 9:14 AM EDT Plan of Treatment Upcoming Encounters Date Type Department Care Team (Late st Contact Info) Description 11/18/2025 3:00 PM EST Office Visit [facility] ADULT [facility] [address] [place] [address] Domingo Craig DMD [address] [place] [address] 11/20/2025 3:00 PM EST Office Visit [facility] ADULT D[facility] [address] [place] [address] Kendra Lee [address] [place] [address] 11/22/2025 1:30 PM EST Telemedicine [facility] [address] [place] [address] Danita Mercedes, RN 11/25/2025 3:00 PM EST Office Visit [facility] ADULT [facility] [address] [place] [address] Geremias Mcintosh Health Maintenance Due Date Last Done Comments CT Colonography 1950 Colonoscopy 1950 Colorectal Cancer Screening 1950 FIT DNA/Cologuard 1950 FIT 1950 FOBT 1950 Sigmoidoscopy 1950 DTaP/Tdap/Td Vaccines (1 - Tdap) 1969 Pneumococcal Vaccine: 50+ Years (1 of 1 - PCV) 2000 Zoster Vaccines (1 of 2) 2000 Dental X-Ray: Full Mouth 08/18/2024 08/17/2021 Dental Oral Exam 04/26/2025 10/26/2024, , 08/26/2022 Dental Prophylaxis 04/26/2025 10/26/2024, 0 03/19/2024, 08/15/2023 RSV Patients and Patients Aged 60 years or older (1 - 1-dose 75+ series) 2025 COVID-19 Vaccine (2 - season) 2025 01/21/2021 Influenza Vaccine (#1) 2025 Dental X-Ray: Bitewings 10/27/2025 10/26/2024, 08/15 SDOH Screening 04/22/2026 04/22/2025 Alcohol/Substance Use Screening 04/29/2026 04/29/2025 Depression Screening 07/16/2026 07/16/2025, 07/16/20 Tobacco Screening 07/16/2026 07/16/2025 Lipid Panel 04/23/2029 04/23/2024, 06/17, 06/10/2022, Additional [...] Procedure Name Priority Date/Time Associated Diagnosis Comments HEPATITIS C AB W/REFL TO HCV RNA, QN, PCR Routine 04/29/2025 2:24 PM EDT Depression with anxiety PROPHYLAXIS - ADULT Routine 10/26/2024 2 :00 [...] Recently Relevant to Health Maintenance Results * Hepatitis C Antibody with Reflex to HCV, RNA, Quantitative, Real-Time PCR (04/29/2025 2:24 PM EDT) Hepatitis C Antibody Nonreactive Nonreactive [facility] Comment:Antibodies to HCV no t detected; does not exclude early acuteHCV infection. Blood Venous blood specimen / Unknown 04/29/2025 2:24 PM EDT 04/29/2025 4:41 PM EDT us Gale Tubbs MD LAB BLOOD ORDERABLES Final Result [facility] [address] [place] [phone] * Lipid Panel with Reflex to Direct LDL (04/23/2024 3:47 PM EDT) Triglycerides 94 <150 mg/dL [facility] Comment:Desirable Triglyceri de: less than 150 mg/dLBorderline High Triglyceride 150-199 mg/dLHigh Triglyceride: 200-499 mg/dLVery High Triglyceride: greater than or equal to 5OO mg/dL Cholesterol 179 <200 mg/dL [facility] Comment:Desirable Cholestero l: less than 200 mg/dLBorderline High Cholesterol: 200-239 mg/dLHigh Cholesterol: greater than 239 mg/dL LDL Cholesterol Calculated 87 <100 mg/dL [facility] Comment:Desirable LDL: less than 100 mg/dLNear Optimal/Above Optimal LDL: 110- 129 mg/dLBorderline High LDL: 130-159 mg/dLHigh LDL: 160-189 mg/dLVery High LDL: greater than or equal to 190 mg/dL HDL Cholesterol 74 >40 mg/dL [facility] Comment:Desirable HDL: great er than 40 mg/dL Note: This HDL assay may give artificially low results in patients with liver disease. Blood 04/23/2024 3:47 PM EDT 04/23/2024 5:40 PM EDT us Gale Tubbs MD LAB BLOOD ORDERABLES Final Result [facility] [address] [place] [address] [phone] from Last 3 Months or Most Recently Relevant to Health Maintenance Insurance MEDICARE HSN FULL [facility] SENIOR BUY-IN/MSP DENTAL - HSN PARTIAL (MEDICAID) Care Teams Treatment Specialist Relationship Specialty Start Date End Date Gale Calhoun MD [address] [place] [phone] PCP - General Family Medicine 01/23/16
--- OUTSIDE RECORDS SUMMARY | 2025-10-07 15:17 | XMS_ITS | Encounter Summary ---
Author Organization [facility] Address [address] [phone] Phone Care Team Providers Care Concrete Plant Laborer Name Role Phone Gale Calhoun MD Primary Care Provide r Encounter Details Date Type Department Care Team (Late Contact Info) Description 09/30/2025 Orders Only [facility] [address] [phone] Carrie Razo [address] [phone] Chronic kidney disease, stage 2 (mild) (Primary Dx) Social History Tobacco Use Types Packs/Day Years Used Date Smoking Tobacco: Never Smokeless Tobacco: Never Alcohol Use Standard Drinks/Week Comments Not Currently 0 (1 standard drink = 0.6 oz pur e alcohol) Comments Unknown Sex and Gender Information Value Date Recorded Sex Assigned at Not on file Legal Sex Female 9:50 AM EDT Gender Identity Not on file Sexual Orientation Not on file documented as of this encounter Plan of Treatment Upcoming Encounters Date Type Department Care Team (Late st Contact Info) Description 10/14/2025 2:00 PM EST Office Visit [facility] [address] [place] [phone] Jatin Rincon MD [address] [phone] Scheduled Orders Name Type Priority Associated Diagnoses Orde r Schedule Magnesium Lab Routine Chronic kidney disease, stage 2 (mild) Expected: 09/30/2025, Expires: 10/31/2026 Phosphorus Lab Routine Chronic kidney disease, stage 2 (mild) Expected: 09/30/2025, Expires: 10/31/2026 CBC Lab Routine Chronic kidney disease, stage 2 (mild) Expected: 09/30/2025, Expires: 10/31/2026 PTH, intact Lab Routine Chronic kidney disease, stage 2 (mild) Expected: 09/30/2025, Expires: 10/31/2026 Renal function panel Lab Routine Chronic kidney disease, stage 2 (mild) Expected: 09/30/2025, Expires: 10/31/2026 Urine Protein / creatinine ratio Lab Routine Chronic kidney disease, stage 2 (mild) Expected: 09/30/2025, Expires: 10/31/2026 Urine Albumin / Creatinine Ratio Lab Routine Chronic kidney disease, stage 2 (mild) Expected: 09/30/2025, Expires: 10/31/2026 documented as of this encounter Procedures Procedure Name Priority Date/Time Associated Diagnosis Comments CBC AND DIFFERENTIAL Routine 10/07/2025 1:34 PM EST PROTEIN,TOTAL,URINE Routine 10/07/2025 1 :33 PM EST Chronic kidney disease, stage 2 (mild) ALBUMIN, URINE, RANDOM Routine 10/07/2025 1:33 PM EST URINALYSIS WITH MICROSCOPIC Routine 10/07/2025 1:33 PM EST Chronic kidney disease, stage 2 (mild) documented in this encounter Results * (ABNORMAL) CBC and Differential (10/07/2025 1:34 PM EST) WBC 11.9(H) 4.8 - 10.8 X10*3/uL See order comments RBC 4.89 4.20 - 5.50 X10*6/uL See order comments Hgb 12.9 12.0 - 16.0 g/dl See order comments Hematocrit 41.2 37.0 - 47.0 % See order comments MCV 84.3 80.0 - 98.0 fL See order comments MCH 26.4(L) 27.0 - 33.0 pg See order comments MCHC 31.3 31.0 - 35.0 g/dl See order comments RDW 14.4 11.0 - 16.0 % See order comments Platelets 378 160 - 400 X10*3/uL See order comments MPV 11.2 9.4 - 12.3 fL See order comments Neutrophils % Auto 63.2 45 - 73 % See order comments Immature Granulocytes 0.4 0.0 - 0.4 % See order comments Lymphocytes Relative 30.8 20 - 40 % See order comments Monocytes 4.0 2 - 11 % See order comments Eosinophils Relative 0.8 0 - 4 % See order comments Basophils Relative 0.8 0 - 2 % See order comments nRBC Count 0.0 0.0 - 0.2 /100WBC See order comments Neutrophils Absolute 7.5 2.0 - 8.3 x10*3/uL See order comments Immature Grans (Absolute) 0.05(H) 0.00 - 0.03 X10*3/uL See order comments Lymphocytes Absolute 3.7 1.2 - 4.9 X10*3/uL See order comments Monocytes Absolute 0.5 0.1 - 1.2 X10*3/uL See order comments Eosinophils Absolute 0.1 0.0 - 0.4 X10*3/uL See order comments Basophils Absolute 0.1 0.0 - 0.2 X10*3/uL See order comments NRBC Absolute 0.000 0.0 - 0.012 X10*3/uL See order comments 10/07/2025 1:34 PM EST 10/07/2025 1:34 PM EST us Jatin Rincon MD LAB BLOOD ORDERABLES Final Re sult [place] See order comments [place] [address] * Albumin, urine, random (10/07/2025 1:33 PM EST) Creatinine, Urine 201.74 mg/dL Se e order comments Urine Microalbumin 20.0 mg/L See order comments Microalbumin/Crea tinine Ratio 9.9 <30 ug/mg cr See order comments Comment: Albumin/Creatinine Ratio Reference Ranges: Normal: < 30 ug/mg creatinine Microalbuminuria: 30 - 300 ug/mg creatinine Clinical Albuminuria: > 300 ug/mg creatinine 10/07/2025 1:33 PM EST 10/07/2025 1:33 PM EST us Jatin Rincon MD LAB URINE ORDERABLES Final Re sult Performing Organization Address [facility]/ZIP Co de Phone Number [place] See order comments [place] [address] * (ABNORMAL) Protein, Total, Urine (10/07/2025 1:33 PM EST) Protein Urine Random 13(H) <12 mg/dL See order comments Urine 10/07/2025 1:33 PM EST 10/07/2025 1:33 PM EST us Jatin Rincon MD LAB URINE ORDERABLES Final Re [facility] Performing Organization Address [facility] de Phone Number [place] See order comments [place] [address] * (ABNORMAL) Urinalysis with microscopic (10/07/2025 1:33 PM EST) Color Urine Yellow See orde r comments Appearance Urine Clear See order comments pH Urine 7.0 5.0 - 9.0 See order comments Glucose Urine Negative Negative mg/dL See order comments Blood, Urine Negative Negative See ord er comments Specific [place] Urine 1.020 1.005 - 1.025 See order comments Protein Urine Negative Neg-Trace mg/dL See order comments Ketones, Urine Negative Negative mg/dL See order comments Nitrite, Urine Negative Negative See o rder comments Leukocyte Esterase Urine Moderate (2+)(A) Negative See order comments RBC, Urine 0-2 0 - 2 /HPF See orde r comments WBC 0-5 0 - 5 /HPF See order comments Squamous Epithelial, Urine 6-10 0 - 2 /HPF See order comments Bacteria, Urine Trace None Seen See order comments Hyaline Casts, Urine 0-2 0 - 2 /LPF See order comments Urine Urine specimen obtained by clean catch procedure / Unknown 10/07/2025 1:33 PM EST 10/07/2025 1:33 PM EST us Jatin Rincon MD LAB URINE ORDERABLES Final Re sult [place] See order comments [place] [address] documented in this encounter Visit Diagnoses Diagnosis Chronic kidney disease, stage 2 (mild)- Primary documented in this encounter Care Teams Concrete Plant Laborer Relationship Specialty Start Date End Date Gale Calhoun MD [address] [place] [phone] PCP - General Internal Medicine 06/10/21 documented as of this encounter
--- OUTSIDE RECORDS SUMMARY | 2025-10-07 15:17 | XMS_ITS | Encounter Summary ---
Author Organization [employer] Address [address] [place] [address] [address]t [place] [address] Care Team Providers Care Coal Tram Driver Name Role Phone Gale Calhoun MD Primary Care Provide r Encounter Details Date Type Department Care Team (Latest Contact Info) Description 05/07/2019 Abstract [facility] CONVERSIONS Dental, Provider, DDS Social History Tobacco [...] Description 11/18/2025 3:00 PM EST Office Visit [facility] ADULT DENTAL [address] [place] [address] Domingo Craig, CELESTINA [address] [place], [place] [phone] 11/20/2025 3:00 PM EST Office Visit [facility] ADULT DENTAL [address] [place] [address] Kendra Lee [address] [place] [address] 11/22/2025 1:30 PM EST Telemedicine [facility] [address] [place] [address] Danita Mercedes RN 11/25/2025 3:00 PM EST Office Visit [facility]ULT [facility] [address] [place] [address] Geremias Mcintosh documented as of this encounter Visit Diagnoses Not on filedocumented in this encounter Care Teams Coal Tram Driver Relationship Specialty Start Date End Date Gale Calhoun MD [address] [place] [address] PCP - General Family Medicine 01/23/16 documented as of this encounter
--- OUTSIDE RECORDS SUMMARY | 2025-10-07 15:17 | XMS_ITS | Encounter Summary ---
Author Organization [employer] Address [address] [place] [address] 7 [place] [address] Care Team Providers Care Environmental Services Lead Name Role Phone Gale Calhoun MD Primary Care Provide r Reason for Visit * Reason Onset Date Comments Prior Authorization 10/20/2022 Encounter Details Date Type Department Care Team (Late st Contact Info) Description 10/20/2022 Telephone [facility] [address] [place], [place] [phone] Gale Calhoun MD [address] [place], [place] [phone] Prior Authorization Social History Tobacco Use Types Packs/Day Years Used Date Smoking Tobacco: Never Assessed Comments Unknown Sex and Gender Information Value Date Recorded Sex Assigned at Female 08/16/2022 10:29 AM EDT Legal Sex Female 10:29 AM EDT Gender Identity Female 08/16/2022 10:29 AM EDT Sexual Orientation Straight 08/16/2022 10 :29 AM EDT documented as of this encounter Miscellaneous Notes * Telephone Encounter - Kailee Cummings - 11/09/2022 11:18 AM EST PA for medication submitted and denied. Patient will receive a denial letter in the mail. * Telephone Encounter - Sherrell Sahni - 11/02/2022 12:44 PM EST Tc from patient re calling on the status of message below. Medication pentazoline - naloxone 50 mg-0.5 mg. * Telephone Encounter - Clinton Torey - 10/20/2022 9:38 AM EST [facility]c [facility] requesting a PA for medication pentazocine 50 mg-naloxone 0.5 mg documented in this encounter Plan of Treatment Upcoming Encounters Date Type Department Care Team (Late st Contact Info) Description 11/18/2025 3:00 PM EST Office Visit [facility] ADULT DENTAL [address] [place] [address] Domingo Craig, DMD [address] [place] [address] 11/20/2025 3:00 PM EST Office Visit [facility] ADULT DENTAL [address] [place] [address] Kendra Lee [address] [place] [address] 11/22/2025 1:30 PM EST Telemedicine [facility] [address] [place] [address] Danita Mercedes RN 11/25/2025 3:00 PM EST Office Visit [facility] ADULT DENTAL [address] [place] [address] Geremias Mcintosh documented as of this encounter Visit Diagnoses Not on filedocumented in this encounter Care Teams Environmental Services Lead Relationship Specialty Start Date End Date Gale Calhoun MD [address] [place] [address] PCP - General Family Medicine 01/23/16 documented as of this encounter
--- OUTSIDE RECORDS SUMMARY | 2025-10-07 15:18 | XMS_ITS | Encounter Summary ---
Author Organization [employer] Address [address] [facility] [address] [place] [address] Care Team Providers Care Fresh Work Inspector Name Role Phone Gale Calhoun MD Primary Care Provide r Reason for Visit * Reason Onset Date Comments case clarification 10/11/2023 Encounter Details Date Type Department Care Team (Late st Contact Info) Description 10/11/2023 Telephone [facility]ULT D[facility] [address] [place] [address] Domingo Craig, CELESTINA [address] [place] [address] case clarification Social History Tobacco Use Types Packs/Day Years Used Date Smoking Tobacco: Never Smokeless Tobacco: Never Alcohol Use Standard Drinks/Week Comments Never 0 (1 standard drink = 0.6 oz pur e alcohol) Depression Answer Date Recorded Patient Health Questionnaire-9 Score 7 06/27/2023 Housing Stability Answer Date Recorded What is your housing situation today? I have ezra kiser 08/01/[address] you [...] encounter Miscellaneous Notes * Telephone Encounter - Skylar Arroyo DDS - 10/12/2023 9:57 AM EST Wendy Lopez, Could you please schedule the pt with Dr. Craig for next week to take this impression? Or ask the pt if she would like to come in today and Id take to send it to the lab. Thanks, Dr. Ladd * Telephone Encounter - Griselda Deng - 10/11/2023 3:26 PM EST Preparing for wax try in but needs opposing model, lower set to set teeth properly. documented in this encounter Plan of Treatment Upcoming Encounters Date Type Department Care Team (Late st Contact Info) Description 11/18/2025 3:00 PM EST Office Visit [facility] [address] [place] [address] Domingo Craig, DMD [address] [place] [address] 11/20/2025 3:00 PM EST Office Visit [facility] [address] [place] [address] Kendra Lee [address] [place] [address] 11/22/2025 1:30 PM EST Telemedicine [facility] [address] [place] [address] Danita Mercedes, TORRES 11/25/2025 3:00 PM EST Office Visit [facility] ADULT DENTAL [address] [place] [address] Geremias Mcintosh documented as of this encounter Visit Diagnoses Not on filedocumented in this encounter Additional Health Concerns Assessment Noted Time PHQ-9 Depression Total Score: 7 06/27/20 23 1:50 PM EDT documented as of this encounter Care Teams Fresh Work Inspector Relationship Specialty Start Date End Date Gale Calhoun MD [address] [place] [address] PCP - General Family Medicine 01/23/16 documented as of this encounter
--- OUTSIDE RECORDS SUMMARY | 2025-10-07 15:18 | XMS_ITS | Encounter Summary ---
Author Organization [employer] Address [address] [place] [address] Care Team Providers Care Market President Name Role Phone Gale Calhoun MD Primary Care Provide r Reason for Visit * Reason Onset Date Comments Med Refill 09/04/2025 Encounter Details Date Type Department Care Team (Late st Contact Info) Description 09/04/[address] [facility] MEDICINE [address] [place], [place] [phone] Gale Calhoun MD [address] [place] [address] Chronic GERD Social History Tobacco Use Types Packs/Day Years [...] Description 11/18/2025 3:00 PM EST Office Visit [facility] ADULT DENTAL [address] [place] [address] Domingo Craig, CELESTINA [address] [place] [address] 11/20/2025 3:00 PM EST Office Visit [facility] ADULT DENTAL [address] [place] [address] Kendra Lee [address] [place] [address] 11/22/2025 1:30 PM EST Telemedicine [facility] MEDICINE [address] [place] [address] Danita Mercedes RN 11/25/2025 3:00 PM EST Office Visit [facility] CHC ADULT DENTAL [address] [place] [address] Geremias Mcintosh documented as of this encounter Visit Diagnoses Diagnosis Chronic GERD documented in this encounter Additional Health Concerns Assessment Noted Time PHQ-9 Depression Total Score: 2 07/16/20 25 10:23 AM EDT documented as of this encounter Care Teams Market President Relationship Specialty Start Date End Date Gale Calhoun MD [address] [place] [address] PCP - General Family Medicine 01/23/16 documented as of this encounter
--- OUTSIDE RECORDS SUMMARY | 2025-10-07 15:18 | XMS_ITS | Clinical Summary ---
Author Organization [facility] Address [address] [place] [address] Phone Care Team Providers Care Analytical Research Chemist Name Role Phone Gale Calhoun MD Primary [...] in the morning. 30 tablet 11 08/06/2024 Active Active Problems Problem Noted Date Diagnosed [...] 02/15/2023 05/06/2023 Primary osteoarthritis of left shoulder 02/16/20 23 05/06/2023 Overview (05/06/2023): Last Assessment & Plan: As [...] disease 04/30/2022 Pain in face 09/11/2018 05/06/2023 Encounters Date Type Department Care Team Description 09/30/2025 Orders Only [facility] [address] [address] Carrie Razo Chronic kidney disease, stage 2 (mild) (Primary Dx) from Last 3 Months Family History Medical History Relation Comments Heart [...] Visit [facility] [address] [place] [address] [place] [address] Jatin Rincon MD [address] [facility] [address] [place] [address] Health Maintenance Due Date Last Done Comments [...] AND DIFFERENTIAL Routine 10/07/2025 1:34 PM EST ALBUMIN, URINE, RANDOM Routine 10/07/2025 1:33 PM EST PROTEIN,TOTAL,URINE Routine 10/07/2025 1 :33 PM EST Chronic kidney disease, stage 2 (mild) URINALYSIS WITH MICROSCOPIC Routine 10/07/2025 1:33 PM EST Chronic kidney disease, stage 2 (mild) from Last 3 Months Results * (ABNORMAL) CBC and Differential (10/07/2025 [...] MD LAB BLOOD ORDERABLES Final [facility] See order comments [place] [address] * (ABNORMAL) Protein, Total, Urine (10/07/2025 1:33 PM EST) Protein Urine Random 13(H) <12 mg/dL See order comments Urine 10/07/2025 1:33 PM EST 10/07/2025 1:33 PM EST Jatin Rincon MD LAB URINE ORDERABLES Final [facility] Performing Organization Address [facility] de Phone Number IRVINE See order comments [place] [address] * Albumin, urine, random (10/07/2025 1:33 PM EST) Creatinine, Urine 201.74 mg/dL Se e order comments Urine Microalbumin 20.0 mg/L See order comments Microalbumin/Crea tinine Ratio 9.9 <30 ug/mg cr See order comments Comment: Albumin/Creatinine Ratio Reference Ranges: Normal: < 30 ug/mg creatinine Microalbuminuria: 30 - 300 ug/mg creatinine Clinical Albuminuria: > 300 ug/mg creatinine 10/07/2025 1:33 PM EST 10/07/2025 1:33 PM EST Jatin Rincon MD LAB URINE ORDERABLES Final [facility] Performing Organization Address [facility] Phone Number IRVINE See order comments [place] [address] * (ABNORMAL) Urinalysis with microscopic (10/07/2025 1:33 PM EST) Color Urine Yellow See orde r comments Appearance Urine Clear See order comments pH Urine 7.0 5.0 - 9.0 See order comments Glucose Urine Negative Negative mg/dL See order comments Blood, Urine Negative Negative See ord er comments Specific [place]born Urine 1.020 1.005 - 1.025 See order [...] MD LAB URINE ORDERABLES [facility] See order comments [place] [address] from Last 3 Months Insurance Medicare Medicaid [place] Medicare Medicaid [place] Care Teams Analytical Research Chemist Relationship Specialty Start Date End Date Gale Calhoun MD [address] [place] [phone] PCP - General Internal Medicine 06/10/21
--- OUTSIDE RECORDS SUMMARY | 2025-10-07 15:18 | XMS_ITS | Encounter Summary ---
Author Organization [employer] Address [address] [place] [address] Care Team Providers Care Ammonium Nitrate Neutralizer Name Role Phone Gale Calhoun MD Primary Care Provide r Reason for Visit * Reason Comments Med Refill Encounter Details Date Type Department Care Team (Late st Contact Info) Description 10/26/2023 Refill [facility] CHC MED & PEDS [address] [place] [address] Gale Calhoun MD [address] [place] [address] Acquired hypothyroidism Social History Tobacco Use Types [...] Description 11/18/2025 3:00 PM EST Office Visit [facility] ADULT DENTAL [address] [place] [address] Domingo Craig, CELESTINA [address] [place] [address] 11/20/2025 3:00 PM EST Office Visit [facility] ADULT DENTAL [address] [place] [address] Kendra Lee [address] [place] [address] 11/22/2025 1:30 PM EST Telemedicine [facility] MEDICINE [address] [place] [address] Danita Mercedes RN 11/25/2025 3:00 PM EST Office Visit [facility] CHC ADULT DENTAL [address] [place] [address] Geremias Mcintosh documented as of this encounter Visit Diagnoses Diagnosis Acquired hypothyroidism Unspecified hypothyroidism documented in this encounter Additional Health Concerns Assessment Noted Time PHQ-9 Depression Total Score: 7 06/27/20 23 1:50 PM EDT documented as of this encounter Care Teams Ammonium Nitrate Neutralizer Relationship Specialty Start Date End Date Gale Calhoun MD [address] [place] [phone] PCP - General Family Medicine 01/23/16 documented as of this encounter
--- OUTSIDE RECORDS SUMMARY | 2025-10-07 15:18 | XMS_ITS | Encounter Summary ---
Author Organization [employer] Address [address] [place] [address] Care Team Providers Care Loading Machine Operator Name Role Phone Gale Calhoun MD Primary Care Provide r Reason for Visit * Reason Onset Date Comments new appt 03/27/2024 Encounter Details Date Type Department Care Team ([facility] st Contact Info) Description 03/27/2024 Telephone [facility] ADULT DENTAL [address] [place] [address] Sunday Pimentel, SHIRAS [address] [place] [address] new appt Social History Tobacco Use Types Packs/Day Years Used Date Smoking Tobacco: Never Smokeless Tobacco: Never Alcohol Use Standard Drinks/Week Comments Never 0 (1 standard drink = 0.6 oz pur e alcohol) Depression Answer Date Recorded Patient Health Questionnaire-9 Score 7 06/27/2023 Housing Stability Answer Date Recorded What is your housing situation today? I have ezra rashel 08/01/[address] you li [...] encounter Miscellaneous Notes * Telephone Encounter - Griselda Deng - 03/27/2024 12:53 PM EDT Patient cancelled appt on my chart due to being ill. She was going to see dr. Pimentel for RCT. Patient wants to be rs. Informed patient that she is back on waiting list/active request and she will geta call from office for scheduling. Patient understood DR documented in this encounter Plan of Treatment Upcoming Encounters Date Type Department Care Team (Late st Contact Info) Description 11/18/2025 3:00 PM EST Office Visit [facility] ADULT DENTAL [address] [place] [address] Domingo Craig, CELESTINA [address] [place] [address] 11/20/2025 3:00 PM EST Office Visit [facility] ADULT DENTAL [address] [place] [address] Kendra Lee [address] [place] [address] 11/22/2025 1:30 PM EST Telemedicine [facility] MEDICINE [address] [place] [address] Danita Mercedes RN 11/25/2025 3:00 PM EST Office Visit [facility] CHC ADULT DENTAL [address] [place] [address] Geremias Mcintosh documented as of this encounter Visit Diagnoses Not on filedocumented in this encounter Additional Health Concerns Assessment Noted Time PHQ-9 Depression Total Score: 7 06/27/20 23 1:50 PM EDT documented as of this encounter Care Teams Loading Machine Operator Relationship Specialty Start Date End Date Gale Calhoun MD [address] [place] [phone] PCP - General Family Medicine 01/23/16 documented as of this encounter
[2025-10-07 15:50] LABS: Albumin Level 4.4 g/dL (3.5-5.0); Anion Gap 11 (12-20); Blood Urea Nitrogen 15 mg/dL (9-16); Calcium 9.3 mg/dL (8.4-10.2); Carbon Dioxide 29 mmol/L (22-29); Chloride 105 mmol/L (96-108); Magnesium 2.1 mg/dL (1.6-2.6); Potassium 4.1 mmol/L (3.3-5.1); Sodium 141 mmol/L (135-145)
[2025-10-07 16:19] LABS: Parathyroid Hormone Intact 107.1 pg/mL (8.7-77.1)
== END 2025-10-07 11:59 | disposition home or self-care (01) ==
LOC: HO.HHCL 11:58
PROVIDERS: PCP Internal Medicine; Visit Provider Internal Medicine Nephrology
DX: N18.2 Chronic kidney disease, stage 2 (mild) (principal)
CPT/HCPCS: 36415; 80069; 81001; 82043; 82570; 83735; 83970; 84156; 85025